=== PATIENT | male | born 1935 | race Caucasian/White ===

== ENCOUNTER 2017-04-26 11:45 | Inpatient (IN) | payer MEDICARE, OTHER ==
[2017-04-26 12:48] LABS: ALT (SGPT) 84 U/L (8-55); AST (SGOT) 161 U/L (5-34); Alkaline Phosphatase 162 U/L (40-150); Anion Gap 14 mmol/L (10-20); BUN (Urea Nitrogen) 53 mg/dL (8.4-25.7); Bilirubin, Total 5.4 mg/dL (0.2-1.2); Calc. Creatinine Clearance 0 mL/min (70-130); Calcium 8.5 mg/dL (7.8-10.44); Carbon Dioxide 25 mmol/L (23-31); Chloride 92 mmol/L (98-107); Estimated GFR-MDRD 50; Globulin 3.3 g/dL (2.4-3.5); Protein, Total 6.1 g/dL (5.8-8.1)
--- NOTE | 2017-04-26 12:58 | RAD ---
LEFT HIP RADIOGRAPH TWO VIEWS: 04/26/2017 PROVIDED CLINICAL HISTORY: Left hip pain status post fall. FINDINGS: There is cortical undulation involving the left inferior pubic ramus which may reflect nondisplaced fracture. There is subtle lucency involving the left acetabulum, suspicious for acetabular fracture . Left hip joint space appears preserved. IMPRESSION: Findings suspicious for left acetabular and inferior pubic rami fractures. POS: OFF
[2017-04-26 13:29] LABS: Hematocrit 42.3 % (42.0-52.0); Mean Platelet Volume 9.5 fL (7.4-10.4); Red Blood Cell (RBC) Count 4.01 mill/uL (4.70-6.10); White Blood Cell (WBC) Count 17.4 thou/uL (4.8-10.8)
--- OUTSIDE RECORDS SUMMARY | 2017-04-26 13:32 | XMS | Clinical Summary ---
:1935 Author Organization [facility] Address [address] [place] [address] Phone Care Team Providers Name Role Phone , Primary Care Provider Unavailable Allergies Active Allergy Reactions Severity Noted Date Comments Sulfamethoxazole-Trimethoprim Rash Low 03/18/2013 itching Iodinated Contrast- Oral And Iv Dye Rash Low 03/18/2013 itching Current Medications Prescription Sig. Disp. Refills Start Date End Date Status digoxin (LANOXIN) 0.125 Take 125 mcg by Active MG tablet mouth daily. nadolol (CORGARD) 20 MG Take 10 mg by mouth Active tablet daily. ISOSORBIDE DINITRATE ORAL Take 7.5 mg by Active mouth 2 (two) times daily. rifaximin (XIFAXAN) 550 Take 550 mg by Active mg Tab mouth 2 (two) times daily. lactulose (CEPHULAC) 20 Take 20 g by mouth Active gram packet 4 (four) times daily. PV W-O AMI/FERROUS Take by mouth Active FUMARATE/FA (M-VIT ORAL) daily. predniSONE (DELTASONE) 10 Take 20 mg by mouth Active MG tablet daily. glipiZIDE (GLUCOTROL) 10 Take 10 mg by mouth Active MG tablet 2 (two) times daily before meals. Active Problems Not on file Social History Tobacco Use Types Packs/Day Years Used Date Current Every Day Smoker Alcohol Use Drinks/Week oz/Week Comments No Sex Assigned at Date Recorded Not on file Last Filed Vital Signs Vital Sign Reading Time Taken Blood Pressure 149/70 03/18/2013 12:45 PM CDT Pulse 81 03/18/2013 12:45 PM CDT Temperature 36 C (96.8 F) 03/18/2013 6:00 AM CDT Respiratory Rate 16 03/18/2013 12:45 PM CDT Oxygen Saturation 97% 03/18/2013 11:29 AM CDT Inhaled Oxygen Concentration - - Weight 74.9 kg (165 lb 3.2 oz) 03/18/2013 6:00 AM CDT Height 182.9 cm (6') 03/18/2013 6:00 AM CDT Body Mass Index 22.41 03/18/2013 6:00 AM CDT Plan of Treatment Not on file Results Not on filefrom Last 3 Months
[2017-04-26 13:56] LABS: Band 8 % (5-11); Macrocytosis SLIGHT = 6-15 cells (100X) (0-5/hpf); Metamyelocyte 1 % (0-0); Neutrophil 88 % (42-75)
--- NOTE | 2017-04-26 16:21 | HP ---
PRIMARY CARE PHYSICIAN: Lidya Nicholson M.D. REASON FOR ADMISSION: Frequent fall, acetabular and pubic bone fracture. HISTORY OF PRESENT ILLNESS: An 81-year-old male who has multiple medical problems who was brought t o emergency room for frequent falls. The patient lives at home with his who is obstetrics and gynecology professor for [employer]. He had two times fall last night and he had one fall yesterday. The patient did not lose any c onsciousness, but he reports that he was not able to maintain any balance. He denies any nausea or vomiting. He denies any fever or chills. He denies any UTI symptoms. He denies any constipation o r diarrhea. He denies any abdominal pain. Patient had congestion in his chest and that is why he was taking antibiotics. Today, patient is found with hyponatremia, hypochloremia, and acute kidney injury. His blood sugar was out of control. He also found with leukocytosis with bandemia. Initially, this patient was planned for transferring to rehabilitation, but rehabilitation wanted to correct medical issue before they accepts him and that is why ER physician decided to keep this pat ient in the hospital. Trauma team was notified and they recommended medical team admission. In the emergency room, Ortho Team was also notified and they recommended that patient does not need any surgical intervention. At this point, we are admitting this patient in the hospital for further evaluation and treatment. 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 PAST SURGICAL HISTORY: CABG in 1996, pacemaker placement, multiple upper and lower endoscopy. PAST PSYCHIATRIC HISTORY: Reviewed and negative. SOCIAL HISTORY: Patient drinks alcohol socially, but he quit drinking alcohol completely several ye ars ago. He is a former smoker. He smoked cigars, but he quit smoking more than 10 years ago. He denies any other illicit drug abuse. He lives at home with family. FAMILY HISTORY: Mother from ovarian cancer by age of 70. Father from heart related disea se. Father also had diabetes. ALLERGIES: AMOXICILLIN, CODEINE, IODINE, PENICILLIN, and SULFA. REVIEW OF SYSTEMS: The following complete review of systems was negative, unless otherwise mentione d in the HPI or below: Constitutional: Weight loss or gain, ability to conduct usual activities. Skin: Rash, itching. Eyes: Double vision, pain. ENT/Mouth: Nose bleeding, neck stiffness, pain, tenderness. Cardiovascular: Palpitations, dyspnea on exertion, orthopnea. Respiratory: Shortness of breath, wheezing, cough, hemoptysis, fever or night sweats. Gastrointestinal: Poor appetite, abdominal pain, heartburn, nausea, vomiting, constipation, or diar asha. Genitourinary: Urgency, frequency, dysuria, nocturia. Musculoskeletal: Pain, swelling. Neurologic/Psychiatric: Anxiety, depression. Allergy/Immunologic: Skin rash, bleeding tendency. Please see my HPI for pertinent positive and negative. All other review of systems reviewed and neg ative except as mentioned in the HPI. CURRENT HOME MEDICATIONS: Corgard 80 mg p.o. daily, rifaximin 550 mg twice daily, lactulose 20 gram s p.o. twice daily, neomycin 500 mg twice daily, Levsin 0.125 mg sublingual every 4-6 hourly, Flomax 0.4 mg p.o. at bedtime, digoxin 125 mcg p.o. daily, glipizide 10 mg twice daily, Dexilant 60 mg p.o . daily, amlodipine 5 mg p.o. daily, Imdur 30 mg p.o. daily, trazodone 100 mg p.o. at bedtime p.r.n. , DuoNeb q.6 hourly p.r.n., Spiriva 18 mcg inhalation daily. EMERGENCY ROOM COURSE: Reviewed. PHYSICAL EXAMINATION: VITAL SIGNS: On arrival, blood pressure 98/71, pulse 80, respiratory rate 12, temperature 97.3, sat uration 97% on room air, weight 69.8 kilograms. GENERAL: Patient is currently alert, awake, lethargic, goes to sleep frequently during conversation . HEAD: Normocephalic, atraumatic. EYES: Pupils round, reactive to light. Extraocular muscles intact. ENT: Oropharynx within normal limits. Moist mucous membranes. No oral lesions. No pharyngeal louie thema, no exudates. NECK: Supple, no JVD, no thyromegaly, no carotid bruits. LUNGS: Coarse breath sounds, but no obvious rhonchi or rales noted. CARDIAC: S1 and S2 regular without any murmur. ABDOMEN: Soft, bowel sounds present. No peritoneal signs, no guarding, no rigidity, no rebound. BACK: Examination unremarkable, no CVA tenderness. No point tenderness. EXTREMITIES: Upper extremities, passive movement of all joints are normal. Lower extremities: No edema. Good peripheral pulsation. SKIN: No skin rash. HEMATOLOGICAL SYSTEM: No lymphadenopathy. PSYCHIATRIC: Normal affect. NEUROLOGIC: Nonfocal examination. No asterixis is noted. IMAGING AND SIGNIFICANT LABORATORY DATA: 1. CBC: WBC 17.4, hemoglobin 13.7, platelet 42, bands 8%. 2. BMP: Sodium 126, potassium 4.6, chloride 92, carbon dioxide 25, BUN 53, creatinine 1.53. Gluco se 339. 3. LFT: Bilirubin 5.4, AST 161, ALT 84, alkaline phosphatase 162, albumin 2.8. 4. EKG showing pacemaker rhythm. ASSESSMENT AND PLAN/IMPRESSION: 1. Frequent fall. Etiology uncertain, but I am pretty much sure that patient has orthostatic hypot ension, so we will check orthostatic vitals. I could not see any cerebellar sign, but we will try t o do CT brain to rule out any cerebellar pathology. This patient will need PT, OT, and eventually p lacement to rehabilitation. 2. Hyponatremia likely related with underlying cirrhosis of liver, suspect suspecting some volume d epletion. We will give him IV fluid with NS at 70 mL per hour and we will give only 1 liter of flui d. We will avoid too much fluid to prevent fluid overload status and we will repeat basic metabolic panel tomorrow. 3. Acute kidney failure. Compared to previous creatinine patient has creatinine elevated and that is why we will give him IV fluid and suspecting prerenal etiology and will repeat basic metabolic pa stephanie tomorrow. 4. Abnormal liver function tests related with underlying nonalcoholic cirrhosis of liver. We will repeat CMP tomorrow. 5. Hyperglycemia. We will continue patient's home medication for diabetes along with diabetic diet and insulin as per sliding scale per protocol. We will continue glipizide 10 mg twice daily. 6. Bandemia. We will check urinalysis and chest x-ray. Etiology uncertain, but patient was recent ly given course of steroid and antibiotic, we will also check Clostridium difficile. 7. Macrocytosis. We will continue folic acid, vitamin B12 therapy while in hospital. 8. Chronic diastolic heart failure. At this point, we will hold on diuretic therapy because of kid awais failure and volume depletion and the patient currently appears euvolemic. 9. Chronic obstructive pulmonary disease. We will continue DuoNeb q.6 hourly. We will check chest x-ray. 10. 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 We will continue Corgard 80 mg p.o. daily, rifaximin 550 mg p.o. twice daily, lactulose 20 grams p.o. twice daily, and neomycin 500 mg t wice daily. 11. Benign enlargement of prostate. We will continue Flomax 0.4 mg p.o. at bedtime. 12. Gastroesophageal reflux disease. We will continue Protonix 40 mg p.o. daily. 13. Paroxysmal atrial fibrillation. We will monitor on telemetry floor. We will continue digoxin 125 mcg p.o. daily. 14. Coronary artery disease with history of coronary artery bypass graft, currently we will hold on Imdur therapy because of relatively low blood pressure. 15. Hypertension. We will also hold on hypertension medication and will check orthostatic vitals t o rule out orthostatic hypotension. 16. Deep venous thrombosis prophylaxis. No Lovenox because of thrombocytopenia. 17. Gastrointestinal prophylaxis, Protonix 40 mg p.o. daily. CODE STATUS: The patient is FULL CODE. The patient's is surrogate decision maker. Disposition plan based on clinical course. We are expecting patient's stay in hospital more than 2 midnights. Plan of care discussed with the family member at bedside.
[2017-04-26] MEDS ORDERED: Ondansetron ODT 4 MG TAB SL PRN (16:25)
[2017-04-26] MEDS ORDERED: Acetaminophen 325 MG TAB PO PRN ×2 (16:25→16:36)
[2017-04-26] MEDS ORDERED: Sodium Chloride 0.9% 1,000 ML IV SCH ×2 (16:25→16:36)
[2017-04-26] MEDS ORDERED: Ondansetron HCl/PF 4 MG/2 ML Vial IVP PRN ×2 (16:25→16:36)
[2017-04-26] MEDS ORDERED: Artificial Tears 18 DROP/0.9 ML EA EYE PRN (16:36)
[2017-04-26] MEDS ORDERED: Dextrose 50% Abboject 50 ML SYRINGE SLOW IVP PRN (16:36)
[2017-04-26] MEDS ORDERED: Ondansetron ODT 4 MG TAB PO PRN (16:36)
[2017-04-26] MEDS ORDERED: Calcium Carbonate 500 MG ChewTAB PO PRN (16:36)
[2017-04-26] MEDS ORDERED: hydrALAZINE 20 MG/ML VIAL SLOW IVP PRN (16:36)
[2017-04-26] MEDS ORDERED: Sodium Chloride 0.65% Nasal 44 ML BOT EA NARE PRN (16:36)
[2017-04-26] MEDS ORDERED: Dextrose 5% in Water 1,000 ML IV PRN (16:36)
[2017-04-26] MEDS ORDERED: Eucerin (Mineral Oil/Petrolatum,White) 30 gm Jar TOP PRN (16:36)
[2017-04-26] MEDS ORDERED: Chloraseptic Spray 180 ml Bottle PO PRN (16:36)
[2017-04-26] MEDS ORDERED: Diabetic Tussin 200 MG/10 ML UDCUP PO PRN (16:36)
[2017-04-26] MEDS ORDERED: Mag-Al 1200 mg/1200 mg/30 ML UDCUP PO PRN (16:36)
[2017-04-26 16:48] VITALS: BMI 20.9
--- NOTE | 2017-04-26 18:27 | RAD ---
CHEST 1 VIEW: Date: 04/26/17 HISTORY: Bandemia. COMPARISON: Chest 1 view dated 04/22/17. FINDINGS: Marked elevation right hemidiaphragm, worsened from the comparison examination. There is compressive atelectasis in the lung bases. Cardiac silhouette and mediastinal contours are similar. IMPRESSION: Progressive volume loss in right lower lobe with atelectatic change. POS: [facility]
--- NOTE | 2017-04-26 19:29 | RAD ---
AP VIEW OF THE PELVIS 04/26/17 INDICATION: History of an acetabular fracture. COMPARISON: Left hip radiograph dated 04/26/17. FINDINGS: As seen on the comparison examination, is a transverse oriented fracture involving the left acetabul um. There is a nondisplaced healing fracture involving the left inferior pubic ramus. Right obturato r ring appears intact. SI joints appear within normal limits. IMPRESSION: Nondisplaced left acetabular and left inferior pubic ramus fracture. POS: [facility]
[2017-04-26] MEDS: glipiZIDE 10 MG TAB PO SCH (21:15)
[2017-04-26] MEDS: guaiFENesin ER 600 MG TAB PO SCH (21:15)
[2017-04-26] MEDS: Rifaximin 550 MG TAB PO SCH (21:15)
[2017-04-26] MEDS: Neomycin 500 mg Tablet PO SCH (21:16)
[2017-04-26] MEDS: HumaLOG 300 UNITS/3 ML VIAL SC PRN (21:20)
--- NOTE | 2017-04-27 00:15 | CON ---
DATE OF CONSULTATION: 04/26/2017 CONSULTING PHYSICIAN: Suresh Stoner MD PRIMARY CARE PHYSICIAN: Lidya Nicholson MD REASON FOR ADMISSION: Multiple falls. HISTORY OF PRESENT ILLNESS: Mr. Quesada is an 81-year-old male who has a history of medical problem s, he brought to the ER, he has had 5 falls he said in the last several weeks. Patient lives [facility] with , his caregiver. He had two falls, is complaining of left hip pain. The patient is curr ently resting in bed, in no acute complaints. PAST MEDICAL HISTORY: Chronic diastolic heart failure, cirrhosis of liver with portal hypertension, prostate issues, nonalcoholic cirrhosis of liver, coagulopathy due to liver disease, COPD, type 2 d iabetes, tricuspid regurgitation, dyslipidemia, gastroesophageal reflux disease, hypertension, pancy topenia, AFib, deconditioning. PAST SURGICAL HISTORY: CABG, pacemaker, multiple endoscopies. MEDICATIONS: Please see admission list for full details. ALLERGIES: Include AMOXICILLIN, CODEINE, IODINE, PENICILLIN, and SULFA. SOCIAL HISTORY: History of social drinking, former smoker. No history of illicit drug use. Lives at home with his family. PHYSICAL EXAMINATION: GENERAL: Alert to person, place, and time. The patient is resting comfortably in bed. EXTREMITIES: Focused exam of left lower extremity, the patient has pain with internal and external rotation of his hip. He is unable to flex his hip. He has got no effusion in his knee. He has got plantar flexion, dorsiflexion intact. Motor intact. L4-S1 to distribution of lower extremity. He has got brisk capillary refill. He got a pelvis that is stable on AP and lateral compression. His right lower extremity is neurovascularly intact, full range of motion, nontender to palpation. RADIOGRAPHS: Two views of left hip show a nondisplaced acetabular fracture to the acetabular dome. IMPRESSION: 1. Left acetabular fracture. 2. Multiple medical problems as listed above. PLAN: The patient will likely require a transition to a penitentiary versus rehabilitation facil ity given his multiple medical problems and his current issue. I allow the patient weightbear as to lerated with a walker. DVT prophylaxis will be performed and recommend DVT prophylaxis for 6 weeks. The patient's high risk for complication given his multiple falls as well as his multiple medical problems and has increased morbidity secondary to this. The patient will need to follow up in about 6 weeks with a pre-clinic film to ensure healing.
[2017-04-27 04:24] LABS: #Lymphocytes 1.5 thou/uL (1.20-3.40); #Monocytes 0.9 thou/uL (0.11-0.59); #Neutrophils 17.3 thou/uL (1.40-6.50); %Eosinophils 0.1 % (0.0-10.0); %Lymphocytes 7.6 % (21.0-51.0); %Monocytes 4.3 % (0.0-10.0); Hematocrit 43.7 % (42.0-52.0); Red Blood Cell (RBC) Count 4.13 mill/uL (4.70-6.10); White Blood Cell (WBC) Count 19.6 thou/uL (4.8-10.8)
[2017-04-27 04:51] LABS: ALT (SGPT) 87 U/L (8-55); AST (SGOT) 156 U/L (5-34); Alkaline Phosphatase 142 U/L (40-150); Anion Gap 16 mmol/L (10-20); BUN (Urea Nitrogen) 50 mg/dL (8.4-25.7); Bilirubin, Total 4.7 mg/dL (0.2-1.2); Calc. Creatinine Clearance 49 mL/min (70-130); Carbon Dioxide 21 mmol/L (23-31); Chloride 95 mmol/L (98-107); Estimated GFR-MDRD 60; Globulin 2.9 g/dL (2.4-3.5); Protein, Total 5.2 g/dL (5.8-8.1)
[2017-04-27 05:40] LABS: Bilirubin Small (Negative); Blood, Urine Trace (Negative); Glucose, Urine (Dipstick) 250 mg/dL (Negative); Ketone, Urine Negative (Negative); Nitrite Negative (Negative); Protein, Urine (Dipstick) Trace mg/dL (Neg-Trace); Urobilinogen 0.2 mg/dL (0.2-1.0)
[2017-04-27 05:43] LABS: Bacteria/HPF None Seen HPF (None Seen); Hyaline Casts/LPF 7-10 HYALINE CAST LPF (0-3 Hyaline); Squamous Epithelial 0-3 HPF (0-3)
[2017-04-27 06:04] LABS: RBC/HPF 0-3 HPF (0-3); Yeast-All Forms 1+ HPF (None Seen)
[2017-04-27] MEDS: Digoxin 0.125 MG TAB PO SCH (09:45)
[2017-04-27] MEDS: Folic Acid 1 MG TAB PO SCH (09:46)
[2017-04-27] MEDS: glipiZIDE 10 MG TAB PO SCH (09:46)
[2017-04-27] MEDS: guaiFENesin ER 600 MG TAB PO SCH ×2 (09:46→21:10)
[2017-04-27] MEDS: Neomycin 500 mg Tablet PO SCH ×2 (09:47→21:10)
[2017-04-27] MEDS: Tamsulosin HCl 0.4 MG CAP PO SCH (09:47)
[2017-04-27] MEDS: Cyanocobalamin (Vitamin B-12) 1,000 MCG TAB PO SCH (09:48)
[2017-04-27] MEDS: Rifaximin 550 MG TAB PO SCH ×2 (09:49→21:10)
[2017-04-27] MEDS: HumaLOG 300 UNITS/3 ML VIAL SC PRN (09:58)
--- NOTE | 2017-04-27 12:32 | PDOC.PN ---
- Subjective Encounter Start Date: 04/27/17 Encounter Start Time: 10:00 Subjective: lethargic, responds to verbal questions -: has multiple bruises/abrasions all over from recurrent falls - Objective Resuscitation Status: Resuscitation Status FULL:Full Resuscitation MAR Reviewed: Yes Vital Signs & Weight: Vital Signs (12 hours) Temp Pulse Resp BP Pulse Ox 04/27/17 11:35 98.4 F 78 20 130/59 L 94 L 04/27/17 09:45 76 04/27/17 08:09 92 L 04/27/17 08:06 76 20 92 L 04/27/17 07:35 97.9 F 87 18 143/64 H 93 L 04/27/17 07:20 97.9 F 87 18 92 L 04/27/17 04:00 97.6 F 78 20 133/95 H 94 L Weight Weight 154 lb I&O: 04/26/17 04/27/17 04/28/17 06:59 06:59 06:59 Intake Total 1558 Output Total 400 Balance 1158 Result Diagrams: 04/27/17 04:10 04/27/17 04:10 Additional Labs: Accuchecks 04/27/17 04/26/17 04/26/17 05:51 21:01 17:03 POC Glucose 244 H 285 H 268 H Phys Exam - Physical Examination HEENT: PERRLA dry mucosa Neck: no JVD, supple Respiratory: no wheezing, no rales Cardiovascular: RRR, no significant murmur Gastrointestinal: soft, non-tender, no distention, positive bowel sounds Musculoskeletal: no edema, pulses present Neurological: non-focal, moves all 4 limbs Dx/Plan (1) KAPIL (acute kidney injury) Code(s): N17.9 - ACUTE KIDNEY FAILURE, UNSPECIFIED Status: Acute (2) Hyponatremia Code(s): E87.1 - HYPO-OSMOLALITY AND HYPONATREMIA Status: Acute Comment: likely due to dehydration (3) Left acetabular fracture Code(s): S32.402A - UNSP FRACTURE OF LEFT ACETABULUM, INIT FOR CLOS FX Status : Acute Qualifiers: Encounter type: subsequent encounter Sublocation of acetabulum: unspecified portion of acetabulum Fracture type: closed (4) Fracture of left inferior pubic ramus Code(s): S32.592A - OTH FRACTURE OF LEFT PUBIS, INIT ENCNTR FOR CLOSED FRACTURE Status: Acute Qualifiers: Encounter type: subsequent encounter Fracture type: closed (5) CAD (coronary artery disease) Code(s): I25.10 - ATHSCL HEART DISEASE OF [place] CORONARY ARTERY W/O ANG PCTRS Status: Chronic Qualifiers: Coronary Disease-Associated Artery/Lesion type: bypass graft [place] vs. transplanted heart: [place] heart Associated angina: without angina Qualified Code(s): I25.810 - Atherosclerosis of coronary artery bypass graft(s) without angina pectoris (6) DM type 2 (diabetes mellitus, type 2) Status: Chronic Qualifiers: Diabetes mellitus complication status: with unspecified complications Diabetes mellitus intermediate frame tender insulin use: without intermediate frame tender use Qualified Code( s): E11.8 - Type 2 diabetes mellitus with unspecified complications (7) Thrombocytopenia Code(s): D69.6 - THROMBOCYTOPENIA, UNSPECIFIED Status: Chronic Comment: due to cirrhosis (8) BPH (benign prostatic hyperplasia) Code(s): N40.0 - BENIGN PROSTATIC HYPERPLASIA WITHOUT LOWER URINRY TRACT SYMP Status: Chronic Qualifiers: Lower urinary tract symptom presence: unspecified whether lower urinary tract symptoms present Qualified Code(s): N40.0 - Benign prostatic hyperplasia without lower urinary tract symptoms (9) COPD (chronic obstructive pulmonary disease) Status: Chronic Qualifiers: COPD type: unspecified COPD Qualified Code(s): J44.9 - Chronic obstructive pulmonary disease, unspecified (10) Cirrhosis of liver not due to alcohol Status: Chronic (11) Dyslipidemia Code(s): E78.5 - HYPERLIPIDEMIA, UNSPECIFIED Status: Chronic (12) GERD (gastroesophageal reflux disease) Code(s): K21.9 - GASTRO-ESOPHAGEAL REFLUX DISEASE WITHOUT ESOPHAGITIS Status: Chronic Qualifiers: Esophagitis presence: esophagitis presence not specified Qualified Code(s) : K21.9 - Gastro-esophageal reflux disease without esophagitis (13) Hypertension Code(s): I10 - ESSENTIAL (PRIMARY) HYPERTENSION Status: Chronic Qualifiers: Hypertension type: essential hypertension Qualified Code(s): I10 - Essential (primary) hypertension (14) Paroxysmal atrial fibrillation Code(s): I48.0 - PAROXYSMAL ATRIAL FIBRILLATION Status: Chronic (15) Hepatic encephalopathy Code(s): K72.90 - HEPATIC FAILURE, UNSPECIFIED WITHOUT COMA Status: Suspected - Plan will get ammonia, bnp, baseline inr, hold lactulose for now (diarrhea) -: consult GI, await cultures, not on antibiotics except neomycin for liver -: likely has dehydration clinically with margination, kapil and hyponatremia -: poor prognosis, will need rehab/swing bed -: still lethargic and not fully oriented * . Review of Systems - Medications/Allergies Allergies/Adverse Reactions: Allergies Allergy/AdvReac Type Severity Reaction Status Date / Time amoxicillin [Amoxicillin] Allergy Verified 11/21/16 22:58 codeine Allergy Verified 11/21/16 22:58 iodine Allergy Verified 11/21/16 22:58 Penicillins Allergy Verified 11/21/16 23:00 Sulfa (Sulfonamide Allergy Verified 11/21/16 22:58 Antibiotics) sulfamethoxazole Allergy Verified 11/21/16 22:58 [From Bactrim] trimethoprim [From Bactrim] Allergy Verified 11/21/16 22:58 Medications: Current Medications Acetaminophen (Tylenol) 650 mg PO Q4H PRN PRN Reason: Headache/Fever or Pain Al Hydroxide/Mg Hydroxide (Maalox) 30 ml PO Q6H PRN PRN Reason: Heartburn or Indigestion Albuterol/Ipratropium (Duoneb) 3 ml NEB [id number] [facility] Last Admin: 04/27/17 08:06 Dose: 3 ml Artificial Tears (Tears Naturale) 0 drop EA EYE PRN PRN PRN Reason: Dry Eyes Calcium Carbonate (Tums) 1,000 mg PO Q4H PRN PRN Reason: Heartburn or Indigestion Cyanocobalamin (Vitamin B-12) 1,000 mcg PO DAILY [facility] Last Admin: 04/27/17 09:48 Dose: 1,000 mcg Dextrose/Water (Dextrose 50%) 25 gm SLOW IVP PRN PRN PRN Reason: Hypoglycemia Digoxin (Lanoxin) 0.125 mg PO DAILY [facility] Last Admin: 04/27/17 09:45 Dose: 0.125 mg Folic Acid (Folvite) 1 mg PO DAILY [facility] Last Admin: 04/27/17 09:46 Dose: 1 mg Glucagon (Glucagon) 1 mg IM PRN PRN PRN Reason: Hypoglycemia Guaifenesin (Robitussin Sf) 200 mg PO Q4H PRN PRN Reason: Cough Guaifenesin (Mucinex) 600 mg PO Q12HR [facility] Last Admin: 04/27/17 09:46 Dose: 600 mg Hydralazine HCl (Apresoline) 10 mg SLOW IVP Q4H PRN PRN Reason: Systolic BP > 180 Dextrose/Water (D5w) 1,000 mls @ 0 mls/hr IV .Q0M PRN; As Directed PRN Reason: Hypoglycemia Sodium Chloride (Normal Saline 0.9%) 1,000 mls @ 50 mls/hr IV .Q20H [facility] Stop: 04/27/17 12:35 Last Admin: 04/26/17 16:59 Dose: 1,000 mls Insulin Human Lispro (Humalog) 0 units SC .AGGRESSIVE SLIDING PRN PRN Reason: Aggressive Correctional Scale Last Admin: 04/27/17 09:58 Dose: 6 unit Insulin Human Lispro (Humalog) 0 units SC .BEDTIME SLIDING SC PRN PRN Reason: Bedtime Correctional Scale Last Admin: 04/26/17 21:20 Dose: 3 unit Mineral Oil/White Petrolatum (Eucerin Cream) 0 gm TOP BIDPRN PRN PRN Reason: Dry Skin Neomycin Sulfate (Neomycin Sulfate) 500 mg PO Q12HR [facility] Last Admin: 04/27/17 09:47 Dose: 500 mg Ondansetron HCl (Zofran Odt) 4 mg PO Q6H PRN PRN Reason: Nausea/Vomiting Ondansetron HCl (Zofran) 4 mg IVP Q6H PRN PRN Reason: Nausea/Vomiting Pantoprazole Sodium (Protonix) 40 mg PO DAILY [facility] Last Admin: 04/27/17 09:47 Dose: 40 mg Phenol (Chloraseptic [place] 180 Ml Bot) 0 ml PO PRN PRN PRN Reason: Sore Throat Rifaximin (Xifaxan) 550 mg PO BID [facility] Last Admin: 04/27/17 09:49 Dose: 550 mg Sodium Chloride ([place] Nasal [place] 0.65%) 0 ml EA NARE QIDPRN PRN PRN Reason: Nasal Congestion Tamsulosin HCl (Flomax) 0.4 mg PO DAILY [facility] Last Admin: 04/27/17 09:47 Dose: 0.4 mg
[2017-04-27 13:05] LABS: PTT 31.8 SEC (22.9-36.1); Prothrombin Time 18.7 SEC (12.0-14.7)
--- NOTE | 2017-04-27 15:42 | CT ---
CT HEAD NONCONTRAST: Date: 04/27/17 HISTORY: Altered mental status. COMPARISON: 11/21/16. FINDINGS: There is no evidence of acute intracranial hemorrhage or infarct. Diffuse cortical atrophy and chron ic ischemic small vessel disease are again demonstrated. There is no mass effect or shift of midline structures. Mucosal thickening is apparent within the ethmoid air cells. IMPRESSION: No acute intracranial abnormalities are demonstrated on noncontrast CT head. POS: [facility]
--- NOTE | 2017-04-27 15:50 | CON ---
DATE OF CONSULTATION: 04/27/2017 REQUESTING PHYSICIAN: Dr. Beverly. REASON FOR CONSULTATION: Altered mental status and cirrhosis. HISTORY OF PRESENT ILLNESS: Amos Quesada is an 81-year-old man, seen in the outpatient setting by cris [facility] colleague, Dr. Vikas Pollard. 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 He has had prior complications of hepatic encephalopathy and esophageal varices. His last EGD was 2-3 years ago in [place], and he is on nadolol for this. His hepatic encephalopathy has evidently been fairly well controlled recently on rifaximin and lactulose. Mr. Quesada most recently followed up in our clinic in 01/2017. In recent months, he has been falling frequently. Unfortunately, he recently fell and suffered a ri ght acetabular as well as clavicular fracture. He was admitted to the hospital, and he also has mul tiple electrolyte abnormalities. He has also been noted to have some symptoms of delirium. The que stion has arisen as to whether his hepatic encephalopathy is well controlled or not. Currently, toleeanne curran, the patient, for me, seems to be lucid. He answers questions appropriately, though he cannot re ally get into details of his history. He has no asterixis. He has been tolerating his diet. REVIEW OF SYSTEMS: Full review of systems including constitutional, head, eyes, ears, nose, throat, GI, , cardiovascular, respiratory, musculoskeletal, and neurologic systems is negative except as noted in the HPI. PAST MEDICAL HISTORY: Chronic diastolic heart failure; cirrhosis with portal hypertension, secondar y to prior alcohol; BPH; coagulopathy, due to cirrhosis; COPD; diabetes, type 2; tricuspid regurgita tion; hyperlipidemia; GERD; hypertension; pancytopenia; paroxysmal atrial fibrillation; physical dec onditioning; esophageal varices; hepatic encephalopathy. PAST SURGICAL HISTORY: CABG in 1996 and pacemaker placement. SOCIAL HISTORY: Quit drinking alcohol completely several years ago. He is a former smoker. No wai g abuse. FAMILY HISTORY: Mother had ovarian cancer. Father of heart disease. ALLERGIES: AMOXICILLIN, CODEINE, IODINE, PENICILLIN, and SULFA. MEDICATIONS: Corgard 80 mg daily, rifaximin 550 mg twice daily, lactulose 20 grams p.o. twice daily , neomycin 500 mg twice daily, Levsin p.r.n., Flomax, digoxin, glipizide, Dexilant 60 mg daily, amlo dipine 5 mg daily, Imdur, trazodone, DuoNeb, Spiriva. PHYSICAL EXAMINATION: VITAL SIGNS: Temperature 98.4, pulse 86, blood pressure 130/70, 96% oxygen saturation on room air. GENERAL: An 81-year-old chronically ill-appearing gentleman, lying in bed comfortably, in no distre ss. SKIN: He is mildly jaundiced, no rashes were palpable. EYES: Mild scleral icterus. Extraocular movements intact. ENT: Mucous membranes moist, no oral lesions. LYMPH: No submandibular or supraclavicular lymphadenopathy. THYROID: Nontender to palpation. MENTAL: The patient is somnolent, but easily arousable. He is able to answer questions appropriate ly, though not in great detail. HEART: Regular rate and rhythm. LUNGS: Clear to auscultation bilaterally. ABDOMEN: Nondistended. Bowel sounds present. Soft and nontender to palpation. EXTREMITIES: No peripheral edema. NEUROLOGICAL: Cranial nerves II-XII intact bilaterally. No asterixis. LABORATORY STUDIES: WBC 19.6, hemoglobin 13.9, platelets 45. INR 1.5. Sodium 127, potassium 4.5, BUN 50, creatinine 1.16, total bilirubin 4.7, alkaline phosphatase 142, AST 156, ALT 87, albumin 2.3 . IMAGING STUDIES: CT of the head without contrast showed no acute processes. Pelvis x-ray shows non displaced left acetabular and left inferior pubic ramus fractures. Chest x-ray shows progressive vo lume loss in the right lower lobe with atelectasis. ASSESSMENT AND PLAN: 1. Delirium. 2. Cirrhosis secondary to prior alcohol abuse. 3. History of hepatic encephalopathy. 4. Acetabular fracture. Regarding the patient's fluctuating mental status, this does not appear to represent hepatic encepha lopathy. Note, his ammonia level is normal. He continues on rifaximin 550 mg b.i.d. Even while ho lding the lactulose, the rifaximin should be enough to present encephalopathy episodes. There is no asterixis on exam. I think his fluctuating mental status is more of a general delirium, and he cer tainly has plenty of reasons for that. Overall, his liver disease is mildly decompensated, but he d oes not have gross ascites. He is on prophylaxis for spontaneous bacterial peritonitis as well as p rophylaxis for variceal bleeding and I would continue all of those home medications if appropriate f rom a renal standpoint. No gastrointestinal diagnostics or intervention planned at this time. Thank you for the consultation. Please call with questions or concerns.
[2017-04-28 05:19] LABS: Hematocrit 40.6 % (42.0-52.0); Mean Platelet Volume 10.3 fL (7.4-10.4); Red Blood Cell (RBC) Count 3.84 mill/uL (4.70-6.10); White Blood Cell (WBC) Count 14.5 thou/uL (4.8-10.8)
[2017-04-28 05:32] LABS: ALT (SGPT) 80 U/L (8-55); AST (SGOT) 127 U/L (5-34); Alkaline Phosphatase 135 U/L (40-150); Anion Gap 12 mmol/L (10-20); BUN (Urea Nitrogen) 51 mg/dL (8.4-25.7); CK (CPK) 1111 U/L (30-200); Calc. Creatinine Clearance 52 mL/min (70-130); Calcium 7.9 mg/dL (7.8-10.44); Carbon Dioxide 26 mmol/L (23-31); Chloride 95 mmol/L (98-107); Estimated GFR-MDRD 59; Globulin 2.7 g/dL (2.4-3.5)
[2017-04-28] MEDS: Rifaximin 550 MG TAB PO SCH ×2 (10:15→21:24)
[2017-04-28] MEDS: Tamsulosin HCl 0.4 MG CAP PO SCH (10:19)
[2017-04-28] MEDS: guaiFENesin ER 600 MG TAB PO SCH ×2 (10:19→21:24)
[2017-04-28] MEDS: Cyanocobalamin (Vitamin B-12) 1,000 MCG TAB PO SCH (10:19)
[2017-04-28] MEDS: Neomycin 500 mg Tablet PO SCH ×2 (10:19→21:24)
[2017-04-28] MEDS: Digoxin 0.125 MG TAB PO SCH (10:19)
[2017-04-28] MEDS: Folic Acid 1 MG TAB PO SCH (10:20)
[2017-04-28] MEDS: Albumin 25% 25 GM/100 ML BOT IVPB SCH ×3 (11:06→21:30)
--- NOTE | 2017-04-28 11:37 | PDOC.PN ---
- Subjective Encounter Start Date: 04/28/17 Encounter Start Time: 08:45 -: old records requested/rev pt is confused, no fever, Patient seen and examined. No overnight events - Objective Resuscitation Status: Resuscitation Status FULL:Full Resuscitation MAR Reviewed: Yes Vital Signs & Weight: Vital Signs (12 hours) Temp Pulse Resp BP Pulse Ox 04/28/17 10:19 82 04/28/17 07:42 94 L 04/28/17 07:35 82 20 94 L 04/28/17 07:15 97.5 F L 81 16 130/70 95 04/28/17 04:00 97.7 F 86 20 122/81 96 Weight Weight 163 lb 12.8 oz I&O: 04/27/17 04/28/17 04/29/17 06:59 06:59 05:59 Intake Total 1558 1320 Output Total 400 Balance 1158 1320 Result Diagrams: 04/28/17 05:09 04/28/17 05:09 Additional Labs: Accuchecks 04/28/17 04/28/17 04/27/17 11:24 06:14 20:59 POC Glucose 241 H 183 H 183 H 04/27/17 16:41 POC Glucose 134 H EKG Reviewed by me: Yes Phys Exam - Physical Examination Constitutional: NAD HEENT: PERRLA, moist MMs Neck: no JVD, supple, full ROM Respiratory: no wheezing, no rales, no rhonchi Cardiovascular: RRR, no significant murmur, no rub Gastrointestinal: soft, non-tender, no distention, positive bowel sounds Musculoskeletal: no edema, pulses present Neurological: moves all 4 limbs Lymphatic: no nodes Skin: no rash, normal turgor Dx/Plan (1) KAPIL (acute kidney injury) Code(s): N17.9 - ACUTE KIDNEY FAILURE, UNSPECIFIED Status: Acute (2) CHF exacerbation Code(s): I50.9 - HEART FAILURE, UNSPECIFIED Status: Acute Qualifiers: Congestive heart failure type: diastolic Qualified Code(s): I50.33 - Acute on chronic diastolic (congestive) heart failure Comment: now euvolemic (3) Fracture of left inferior pubic ramus Code(s): S32.592A - OTH FRACTURE OF LEFT PUBIS, INIT ENCNTR FOR CLOSED FRACTURE Status: Acute Qualifiers: Encounter type: subsequent encounter Fracture type: closed (4) Hyponatremia Code(s): E87.1 - HYPO-OSMOLALITY AND HYPONATREMIA Status: Acute Comment: likely due to dehydration (5) Left acetabular fracture Code(s): S32.402A - UNSP FRACTURE OF LEFT ACETABULUM, INIT FOR CLOS FX Status : Acute Qualifiers: Encounter type: subsequent encounter Sublocation of acetabulum: unspecified portion of acetabulum Fracture type: closed (6) Abnormal LFTs Code(s): R79.89 - OTHER SPECIFIED ABNORMAL FINDINGS OF BLOOD CHEMISTRY Status : Chronic (7) BPH (benign prostatic hyperplasia) Code(s): N40.0 - BENIGN PROSTATIC HYPERPLASIA WITHOUT LOWER URINRY TRACT SYMP Status: Chronic Qualifiers: Lower urinary tract symptom presence: unspecified whether lower urinary tract symptoms present Qualified Code(s): N40.0 - Benign prostatic hyperplasia without lower urinary tract symptoms (8) CAD (coronary artery disease) Code(s): I25.10 - ATHSCL HEART DISEASE OF [place] CORONARY ARTERY W/O ANG PCTRS Status: Chronic Qualifiers: Coronary Disease-Associated Artery/Lesion type: bypass graft [place] vs. transplanted heart: [place] heart Associated angina: without angina Qualified Code(s): I25.810 - Atherosclerosis of coronary artery bypass graft(s) without angina pectoris (9) COPD (chronic obstructive pulmonary disease) Status: Chronic Qualifiers: COPD type: unspecified COPD Qualified Code(s): J44.9 - Chronic obstructive pulmonary disease, unspecified (10) Cirrhosis of liver not due to alcohol Status: Chronic (11) Coagulopathy Status: Chronic (12) Diabetes type 2, controlled Code(s): E11.9 - TYPE 2 DIABETES MELLITUS WITHOUT COMPLICATIONS Status: Chronic (13) GERD (gastroesophageal reflux disease) Code(s): K21.9 - GASTRO-ESOPHAGEAL REFLUX DISEASE WITHOUT ESOPHAGITIS Status: Chronic Qualifiers: Esophagitis presence: esophagitis presence not specified Qualified Code(s) : K21.9 - Gastro-esophageal reflux disease without esophagitis (14) Hypertension Code(s): I10 - ESSENTIAL (PRIMARY) HYPERTENSION Status: Chronic Qualifiers: Hypertension type: essential hypertension Qualified Code(s): I10 - Essential (primary) hypertension (15) Pancytopenia Code(s): D61.818 - OTHER PANCYTOPENIA Status: Chronic (16) Paroxysmal atrial fibrillation Code(s): I48.0 - PAROXYSMAL ATRIAL FIBRILLATION Status: Chronic (17) Thrombocytopenia Code(s): D69.6 - THROMBOCYTOPENIA, UNSPECIFIED Status: Chronic Comment: due to cirrhosis (18) Hepatic encephalopathy Code(s): K72.90 - HEPATIC FAILURE, UNSPECIFIED WITHOUT COMA Status: Suspected (19) Acute metabolic encephalopathy Code(s): G93.41 - METABOLIC ENCEPHALOPATHY Status: Acute (20) Dyslipidemia Code(s): E78.5 - HYPERLIPIDEMIA, UNSPECIFIED Status: Chronic - Plan cont current plan of care * continue albumin * monitor labs * updated plan to caregiver * follow culture * discussed with nephrology about plan * medication reviewed as below * symptomatic treatment. Review of Systems - Review of Systems Other: not reliable due to confusion - Medications/Allergies Allergies/Adverse Reactions: Allergies Allergy/AdvReac Type Severity Reaction Status Date / Time amoxicillin [Amoxicillin] Allergy Verified 11/21/16 22:58 codeine Allergy Verified 11/21/16 22:58 iodine Allergy Verified 11/21/16 22:58 Penicillins Allergy Verified 11/21/16 23:00 Sulfa (Sulfonamide Allergy Verified 11/21/16 22:58 Antibiotics) sulfamethoxazole Allergy Verified 11/21/16 22:58 [From Bactrim] trimethoprim [From Bactrim] Allergy Verified 11/21/16 22:58 Medications: Current Medications Acetaminophen (Tylenol) 650 mg PO Q4H PRN PRN Reason: Headache/Fever or Pain Al Hydroxide/Mg Hydroxide (Maalox) 30 ml PO Q6H PRN PRN Reason: Heartburn or Indigestion Albumin Human (Albumin 25%) 25 gm IVPB Q6H [facility] Stop: 04/29/17 03:31 Last Admin: 04/28/17 11:06 Dose: 25 gm Albuterol/Ipratropium (Duoneb) 3 ml NEB [id number] [facility] Last Admin: 04/28/17 07:35 Dose: 3 ml Artificial Tears (Tears Naturale) 0 drop EA EYE PRN PRN PRN Reason: Dry Eyes Calcium Carbonate (Tums) 1,000 mg PO Q4H PRN PRN Reason: Heartburn or Indigestion Cyanocobalamin (Vitamin B-12) 1,000 mcg PO DAILY [facility] Last Admin: 04/28/17 10:19 Dose: 1,000 mcg Dextrose/Water (Dextrose 50%) 25 gm SLOW IVP PRN PRN PRN Reason: Hypoglycemia Digoxin (Lanoxin) 0.125 mg PO DAILY [facility] Last Admin: 04/28/17 10:19 Dose: 0.125 mg Folic Acid (Folvite) 1 mg PO DAILY [facility] Last Admin: 04/28/17 10:20 Dose: 1 mg Glucagon (Glucagon) 1 mg IM PRN PRN PRN Reason: Hypoglycemia Guaifenesin (Robitussin Sf) 200 mg PO Q4H PRN PRN Reason: Cough Guaifenesin (Mucinex) 600 mg PO Q12HR [facility] Last Admin: 04/28/17 10:19 Dose: 600 mg Hydralazine HCl (Apresoline) 10 mg SLOW IVP Q4H PRN PRN Reason: Systolic BP > 180 Dextrose/Water (D5w) 1,000 mls @ 0 mls/hr IV .Q0M PRN; As Directed PRN Reason: Hypoglycemia Insulin Human Lispro (Humalog) 0 units SC .AGGRESSIVE SLIDING PRN PRN Reason: Aggressive Correctional Scale Last Admin: 04/27/17 09:58 Dose: 6 unit Insulin Human Lispro (Humalog) 0 units SC .BEDTIME SLIDING SC PRN PRN Reason: Bedtime Correctional Scale Last Admin: 04/26/17 21:20 Dose: 3 unit Mineral Oil/White Petrolatum (Eucerin Cream) 0 gm TOP BIDPRN PRN PRN Reason: Dry Skin Neomycin Sulfate (Neomycin Sulfate) 500 mg PO Q12HR [facility] Last Admin: 04/28/17 10:19 Dose: 500 mg Ondansetron HCl (Zofran Odt) 4 mg PO Q6H PRN PRN Reason: Nausea/Vomiting Ondansetron HCl (Zofran) 4 mg IVP Q6H PRN PRN Reason: Nausea/Vomiting Pantoprazole Sodium (Protonix) 40 mg PO DAILY [facility] Last Admin: 04/28/17 10:20 Dose: 40 mg Phenol (Chloraseptic [place] 180 Ml Bot) 0 ml PO PRN PRN PRN Reason: Sore Throat Rifaximin (Xifaxan) 550 mg PO BID [facility] Last Admin: 04/28/17 10:15 Dose: 550 mg Sodium Chloride ([place] Nasal [place] 0.65%) 0 ml EA NARE QIDPRN PRN PRN Reason: Nasal Congestion Sodium Chloride (Flush - Normal Saline) 10 ml IVF Q12HR JETHRO Sodium Chloride (Flush - Normal Saline) 10 ml IVF PRN PRN PRN Reason: Saline Flush Tamsulosin HCl (Flomax) 0.4 mg PO DAILY [facility] Last Admin: 04/28/17 10:19 Dose: 0.4 mg
--- NOTE | 2017-04-28 13:47 | EKG ---
Test Reason : FALL Blood Pressure : / mmHG Vent. Rate : 077 BPM Atrial Rate : 098 BPM P-R Int : 000 ms QRS Dur : 090 ms QT Int : 378 ms P-R-T Axes : 000 -03 261 degrees QTc Int : 427 ms Demand pacemaker; interpretation is based on intrinsic rhythm Abnormal ECG Confirmed by EDIL HAINES, DWAYNE ([id number]), book editor MARK ALEMAN ([id number]) on 04/28/2017 1:47:09 PM Referred By: Confirmed By:DWAYNE SOLO MD
[2017-04-28] MEDS: HumaLOG 300 UNITS/3 ML VIAL SC PRN ×2 (14:35→18:28)
--- NOTE | 2017-04-28 14:36 | RAD ---
CHEST ONE VIEW: HISTORY: Cough. COMPARISON: 04/26/2017 FINDINGS: The cardiac silhouette is magnified by projection. The right hemidiaphragm remains elevated. Bibas ilar atelectasis is similar in appearance to the prior exam. The mediastinum is midline with aortic calcification, postoperative changes, and a dual lead left subclavian cardiac electronic device. N o lobar consolidation or pneumothorax is apparent. IMPRESSION: Stable radiographic appearance of the chest. POS: [place]
--- NOTE | 2017-04-28 23:48 | CON ---
NEPHROLOGY CONSULTATION NOTE DATE OF CONSULTATION: 04/28/2017 CONSULTING PHYSICIAN: Dr. Stoner. REASON FOR CONSULTATION: Hyponatremia and acute kidney injury. REASON FOR ADMISSION: Frequent falls. HISTORY OF PRESENT ILLNESS: This is an 81-year-old male with history of multiple medical problems i ncluding CHF, cirrhosis, hypertension, BPH, COPD, type 2 diabetes and hyperlipidemia who came to the hospital with frequent falls and was found to have hyponatremia. Nephrology is consulted. The pat ient's sodium was 126 on arrival and baseline runs around 134-135 and this morning it was 129. Radha ent had IV fluids initially during admission. He also had elevated creatinine, it was 1.3 from his baseline, it was 0.9, which improved to 1.1. Patient is mildly edematous. No fever, chills, no leora rtness of breath, no chest pain or palpitation reported. No nausea or vomiting. PAST MEDICAL HISTORY: Positive for CHF, cirrhosis, BPH, hypertension, coagulopathy, COPD, type 2 di abetes, tricuspid regurgitation and hyperlipidemia. PAST SURGICAL HISTORY: CABG, pacemaker and endoscopy. HOME MEDICATIONS: Corgard, rifaximin, lactulose, neomycin, Levsin sublingual, Flomax, digoxin, glip izide, Dexilant, amlodipine, Imdur, trazodone, DuoNebs and Spiriva. ALLERGIES: AMOXICILLIN, CODEINE, IODINE, PENICILLIN AND SULFA. SOCIAL HISTORY: No smoking alcohol or illicit drug abuse. FAMILY HISTORY: Positive for ovarian cancer REVIEW OF SYSTEMS: The following complete review of systems was negative, unless otherwise mentione d in the HPI or below: Constitutional: Weight loss or gain, ability to conduct usual activities. Skin: Rash, itching. Eyes: Double vision, pain. ENT/Mouth: Nose bleeding, neck stiffness, pain, tenderness. Cardiovascular: Palpitations, dyspnea on exertion, orthopnea. Respiratory: Shortness of breath, wheezing, cough, hemoptysis, fever or night sweats. Gastrointestinal: Poor appetite, abdominal pain, heartburn, nausea, vomiting, constipation, or diar asha. Genitourinary: Urgency, frequency, dysuria, nocturia. Musculoskeletal: Pain, swelling. Neurologic/Psychiatric: Anxiety, depression. Allergy/Immunologic: Skin rash, bleeding tendency. PHYSICAL EXAMINATION: GENERAL: This is a well-built male in no apparent distress. VITAL SIGNS: Temperature 97.5, pulse 96, respiratory 18 and blood pressure 131/61. HEENT: Atraumatic and normocephalic. Oral mucosa is moist. NECK: Supple. No masses. CARDIOVASCULAR: S1 and S2 present. Rate and rhythm regular. RESPIRATORY: Clear. GASTROINTESTINAL: Abdomen is soft. MUSCULOSKELETAL: 1+ edema. DERMATOLOGIC: No skin rash. NEUROLOGIC: Alert and awake. PSYCHIATRIC: Mood and affect normal. LABORATORY DATA: Hemoglobin is 13.6. INR is 1.5, potassium is 4.1, sodium is 129, BUN 51 and creat inine 1.1. ASSESSMENT AND PLAN: 1. Hyponatremia, most likely volume depletion, improved with IV fluids, still 129. Plan is to star t albumin for volume expansion, albumin level was was 2.3. 2. Acute kidney injury, better with IV hydration. 3. Hypochloremia. 4. Hypoalbuminemia with severe protein-energy malnutrition. 5. Cirrhosis of the liver. 6. Anemia, stable. 7. Edema, controlled. 8. Hypertension, stable. Plan is to try albumin, limit fluid intake, limit free water intake and we will follow. Thank you for the consultation.
[2017-04-29] MEDS: Albumin 25% 25 GM/100 ML BOT IVPB SCH (03:03)
[2017-04-29] MEDS: Cyanocobalamin (Vitamin B-12) 1,000 MCG TAB PO SCH (09:44)
[2017-04-29] MEDS: Neomycin 500 mg Tablet PO SCH ×2 (09:44→20:57)
[2017-04-29] MEDS: Digoxin 0.125 MG TAB PO SCH (09:44)
[2017-04-29] MEDS: Folic Acid 1 MG TAB PO SCH (09:44)
[2017-04-29] MEDS: guaiFENesin ER 600 MG TAB PO SCH ×2 (09:44→20:57)
[2017-04-29] MEDS: Tamsulosin HCl 0.4 MG CAP PO SCH (09:44)
--- NOTE | 2017-04-29 09:46 | PDOC.PN ---
- Subjective Encounter Start Date: 04/29/17 Encounter Start Time: 08:20 pt is still confused, weak, incoherent Patient seen and examined. No overnight events - Objective Resuscitation Status: Resuscitation Status FULL:Full Resuscitation MAR Reviewed: Yes Vital Signs & Weight: Vital Signs (12 hours) Temp Pulse Resp BP Pulse Ox 04/29/17 07:15 97.2 F L 84 18 138/69 92 L 04/29/17 07:04 93 L 04/29/17 07:00 78 20 93 L 04/29/17 04:00 98.8 F 84 20 139/68 95 04/29/17 00:02 96 Weight Weight 166 lb 8 oz I&O: 04/28/17 04/29/17 04/30/17 07:59 06:59 06:59 Intake Total Output Total Balance Result Diagrams: 04/28/17 05:09 04/28/17 05:09 Additional Labs: Accuchecks 04/29/17 04/28/17 04/28/17 05:45 21:13 16:49 POC Glucose 173 H 173 H 251 H 04/28/17 11:24 POC Glucose 241 H EKG Reviewed by me: Yes Phys Exam - Physical Examination Constitutional: NAD HEENT: PERRLA, moist MMs, sclera anicteric Neck: no JVD, supple Respiratory: no wheezing, no rales, no rhonchi Cardiovascular: RRR, no significant murmur, no rub Gastrointestinal: soft, non-tender, no distention, positive bowel sounds Musculoskeletal: no edema, pulses present Neurological: moves all 4 limbs Lymphatic: no nodes Psychiatric: normal affect Skin: no rash, normal turgor Dx/Plan (1) KAPIL (acute kidney injury) Code(s): N17.9 - ACUTE KIDNEY FAILURE, UNSPECIFIED Status: Acute (2) CHF exacerbation Code(s): I50.9 - HEART FAILURE, UNSPECIFIED Status: Acute Qualifiers: Congestive heart failure type: diastolic Qualified Code(s): I50.33 - Acute on chronic diastolic (congestive) heart failure Comment: now euvolemic (3) Fracture of left inferior pubic ramus Code(s): S32.592A - OTH FRACTURE OF LEFT PUBIS, INIT ENCNTR FOR CLOSED FRACTURE Status: Acute Qualifiers: Encounter type: subsequent encounter Fracture type: closed (4) Hyponatremia Code(s): E87.1 - HYPO-OSMOLALITY AND HYPONATREMIA Status: Acute Comment: likely due to dehydration (5) Left acetabular fracture Code(s): S32.402A - UNSP FRACTURE OF LEFT ACETABULUM, INIT FOR CLOS FX Status : Acute Qualifiers: Encounter type: subsequent encounter Sublocation of acetabulum: unspecified portion of acetabulum Fracture type: closed (6) Abnormal LFTs Code(s): R79.89 - OTHER SPECIFIED ABNORMAL FINDINGS OF BLOOD CHEMISTRY Status : Chronic (7) BPH (benign prostatic hyperplasia) Code(s): N40.0 - BENIGN PROSTATIC HYPERPLASIA WITHOUT LOWER URINRY TRACT SYMP Status: Chronic Qualifiers: Lower urinary tract symptom presence: unspecified whether lower urinary tract symptoms present Qualified Code(s): N40.0 - Benign prostatic hyperplasia without lower urinary tract symptoms (8) CAD (coronary artery disease) Code(s): I25.10 - ATHSCL HEART DISEASE OF [place] CORONARY ARTERY W/O ANG PCTRS Status: Chronic Qualifiers: Coronary Disease-Associated Artery/Lesion type: bypass graft [place] vs. 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: Chronic (11) Coagulopathy Status: Chronic (12) Diabetes type 2, controlled Code(s): E11.9 - TYPE 2 DIABETES MELLITUS WITHOUT COMPLICATIONS Status: Chronic (13) GERD (gastroesophageal reflux disease) Code(s): K21.9 - GASTRO-ESOPHAGEAL REFLUX DISEASE WITHOUT ESOPHAGITIS Status: Chronic Qualifiers: Esophagitis presence: esophagitis presence not specified Qualified Code(s) : K21.9 - Gastro-esophageal reflux disease without esophagitis (14) Hypertension Code(s): I10 - ESSENTIAL (PRIMARY) HYPERTENSION Status: Chronic Qualifiers: Hypertension type: essential hypertension Qualified Code(s): I10 - Essential (primary) hypertension (15) Pancytopenia Code(s): D61.818 - OTHER PANCYTOPENIA Status: Chronic (16) Paroxysmal atrial fibrillation Code(s): I48.0 - PAROXYSMAL ATRIAL FIBRILLATION Status: Chronic (17) Thrombocytopenia Code(s): D69.6 - THROMBOCYTOPENIA, UNSPECIFIED Status: Chronic Comment: due to cirrhosis (18) Hepatic encephalopathy Code(s): K72.90 - HEPATIC FAILURE, UNSPECIFIED WITHOUT COMA Status: Suspected (19) Acute metabolic encephalopathy Code(s): G93.41 - METABOLIC ENCEPHALOPATHY Status: Acute (20) Dyslipidemia Code(s): E78.5 - HYPERLIPIDEMIA, UNSPECIFIED Status: Chronic (21) Yeast UTI Code(s): B37.49 - OTHER UROGENITAL CANDIDIASIS Status: Acute (22) Moderate tricuspid regurgitation by prior echocardiogram Code(s): I07.1 - RHEUMATIC TRICUSPID INSUFFICIENCY Status: Chronic - Plan cont current plan of care * will start diflucan * will repeat labs tomorrow * will consult neurology for his continous altered mental status * medication reviewed as below * symptomatic treatment. Review of Systems - Review of Systems Other: not reliable due to AMS - Medications/Allergies Allergies/Adverse Reactions: Allergies Allergy/AdvReac Type Severity Reaction Status Date / Time amoxicillin [Amoxicillin] Allergy Verified 11/21/16 22:58 codeine Allergy Verified 11/21/16 22:58 iodine Allergy Verified 11/21/16 22:58 Penicillins Allergy Verified 11/21/16 23:00 Sulfa (Sulfonamide Allergy Verified 11/21/16 22:58 Antibiotics) sulfamethoxazole Allergy Verified 11/21/16 22:58 [From Bactrim] trimethoprim [From Bactrim] Allergy Verified 11/21/16 22:58 Medications: Current Medications Acetaminophen (Tylenol) 650 mg PO Q4H PRN PRN Reason: Headache/Fever or Pain Al Hydroxide/Mg Hydroxide (Maalox) 30 ml PO Q6H PRN PRN Reason: Heartburn or Indigestion Albuterol/Ipratropium (Duoneb) 3 ml NEB [id number] [facility] Last Admin: 04/29/17 07:00 Dose: 3 ml Artificial Tears (Tears Naturale) 0 drop EA EYE PRN PRN PRN Reason: Dry Eyes Calcium Carbonate (Tums) 1,000 mg PO Q4H PRN PRN Reason: Heartburn or Indigestion Cyanocobalamin (Vitamin B-12) 1,000 mcg PO DAILY [facility] Last Admin: 04/28/17 10:19 Dose: 1,000 mcg Dextrose/Water (Dextrose 50%) 25 gm SLOW IVP PRN PRN PRN Reason: Hypoglycemia Digoxin (Lanoxin) 0.125 mg PO DAILY [facility] Last Admin: 04/28/17 10:19 Dose: 0.125 mg Folic Acid (Folvite) 1 mg PO DAILY [facility] Last Admin: 04/28/17 10:20 Dose: 1 mg Glucagon (Glucagon) 1 mg IM PRN PRN PRN Reason: Hypoglycemia Guaifenesin (Robitussin Sf) 200 mg PO Q4H PRN PRN Reason: Cough Guaifenesin (Mucinex) 600 mg PO Q12HR [facility] Last Admin: 04/28/17 21:24 Dose: 600 mg Hydralazine HCl (Apresoline) 10 mg SLOW IVP Q4H PRN PRN Reason: Systolic BP > 180 Dextrose/Water (D5w) 1,000 mls @ 0 mls/hr IV .Q0M PRN; As Directed PRN Reason: Hypoglycemia Fluconazole/Sodium Chloride (100 mg/ Device) 50 mls @ 100 mls/hr IVPB DAILY [facility] Insulin Human Lispro (Humalog) 0 units SC .AGGRESSIVE SLIDING PRN PRN Reason: Aggressive Correctional Scale Last Admin: 04/28/17 18:28 Dose: 9 unit Insulin Human Lispro (Humalog) 0 units SC .BEDTIME SLIDING SC PRN PRN Reason: Bedtime Correctional Scale Last Admin: 04/26/17 21:20 Dose: 3 unit Mineral Oil/White Petrolatum (Eucerin Cream) 0 gm TOP BIDPRN PRN PRN Reason: Dry Skin Neomycin Sulfate (Neomycin Sulfate) 500 mg PO Q12HR [facility] Last Admin: 04/28/17 21:24 Dose: 500 mg Ondansetron HCl (Zofran Odt) 4 mg PO Q6H PRN PRN Reason: Nausea/Vomiting Ondansetron HCl (Zofran) 4 mg IVP Q6H PRN PRN Reason: Nausea/Vomiting Pantoprazole Sodium (Protonix) 40 mg PO DAILY [facility] Last Admin: 04/28/17 10:20 Dose: 40 mg Phenol (Chloraseptic [place] 180 Ml Bot) 0 ml PO PRN PRN PRN Reason: Sore Throat Rifaximin (Xifaxan) 550 mg PO BID [facility] Last Admin: 04/28/17 21:24 Dose: 550 mg Sodium Chloride ([place] Nasal [place] 0.65%) 0 ml EA NARE QIDPRN PRN PRN Reason: Nasal Congestion Sodium Chloride (Flush - Normal Saline) 10 ml IVF Q12HR [facility] Last Admin: 04/28/17 21:25 Dose: 10 ml Sodium Chloride (Flush - Normal Saline) 10 ml IVF PRN PRN PRN Reason: Saline Flush Tamsulosin HCl (Flomax) 0.4 mg PO DAILY [facility] Last Admin: 04/28/17 10:19 Dose: 0.4 mg
[2017-04-29] MEDS: Rifaximin 550 MG TAB PO SCH ×2 (09:50→20:57)
[2017-04-29] MEDS: Fluconazole In NaCl,Iso-Osm 100 MG in Premix Bag 1 BAG IVPB SCH ×2 (09:50)
[2017-04-29] MEDS: HumaLOG 300 UNITS/3 ML VIAL SC PRN (18:33)
--- NOTE | 2017-04-30 00:02 | CON ---
DATE OF CONSULTATION: 04/29/2017 REASON FOR CONSULTATION: Altered mental status. REFERRING PROVIDER: Suresh Stoner MD HISTORY OF PRESENT ILLNESS: Mr. Quesada is a pleasant 81-year-old male who has been consulted for evaluation of altered mental status. History is obtained from the patient's 2 sons who were present at the bedside. Son reports that the patient had fallen on 2 or 3 occasions before being admitted to the hospital. He was found to have a nondisplaced left acetabular and left inferior pubic ramus fracture, for which he is being admitted for further treatment. They report that since being admitted to the hospital they have noticed a gradual decline in his mentation. He is being more sleepy and lethargic during the daytime. They do note that he does not sleep during the nighttime. They report that at baseline he is able to communicate and he is awake, alert, and oriented x3. They report that he has liver cirrhosis and at times when his ammonia level goes up, he develops encephalopathy that tends to clear up once his ammonia level comes back down. However, they feel that this confusion is much different than it has been in the past. They report that he has occasional difficulty with remembering conversations; however, they denied any difficulty with his memory. They also denied any history of hallucinations or delusions. PAST MEDICAL HISTORY: Significant for hypertension, congestive heart failure, nonalcoholic cirrhosis of the liver, coagulopathy due to liver disease, COPD, diabetes, dyslipidemia, GERD, pancytopenia, paroxysmal atrial fibrillation, and recent pelvic fracture. PAST SURGICAL HISTORY: Significant for CABG, pacemaker placement. SOCIAL HISTORY: He drinks alcohol on social occasions. He is a former smoker. He does not perform any illicit drug use. He is retired and lives with his family on his own. FAMILY HISTORY: Noncontributory. CURRENT MEDICATIONS: Please review MAR. ALLERGIES: Include AMOXICILLIN, CODEINE, IODINE, PENICILLIN, and SULFA DRUGS. REVIEW OF SYSTEMS: The patient reported no headache, chest pain, palpitation, nausea or vomiting. He does complain of feeling tired and fatigued. PHYSICAL EXAMINATION: VITAL SIGNS: Blood pressure of 149/72, pulse of 83, temperature of 98.4, respirations of 18, O2 sats of 93% on room air. GENERAL: Well-developed, well-nourished male resting in bed in no apparent distress. RESPIRATORY: Clear to auscultation bilaterally. CARDIOVASCULAR: Regular rate and rhythm. NEUROLOGIC: Mental status: The patient is drowsy appearing. He does wake up to verbal stimuli. He is able to follow simple commands. He was able to state his first and last name. He was able to state his age, date of , and the name of his children. He is able to recognize his family members who were present at the bedside. Again, he was able to follow simple commands. Speech and language: Fluent speech. Cranial nerves: Pupils are 3 mm and reactive. Visual li are intact. Extraocular muscles are intact. No nystagmus is noted. The face appears symmetric. The motor exam showed normal tone and bulk with a 5/5 strength in both upper and lower extremities. Babinski: Plantar responses flexion bilaterally. Coordination: Gait and Romberg are not tested. LABORATORY DATA: Reviewed, which included CBC, coag panel, CMP, BNP, CPK, ammonia level, urinalysis, which is significant for WBC of 14.5, hemoglobin 13.6 , hematocrit of 40.6, platelet count of 35. PT of 18.7, INR of 1.5, PTT of 31.8. Sodium of 129, BUN of 51, creatinine of 1.18, AST of 127, ALT of 80. CPK of 1111, otherwise unremarkable. IMAGING STUDIES: CT head without contrast was reviewed, which showed no acute intracranial abnormality. IMPRESSION: 1. Altered mental status, likely toxic metabolic encephalopathy. 2. Hyponatremia. 3. Acute kidney injury. PLAN: Mr. Quesada is a pleasant 81-year-old male who presented with the frequent falls that were likely secondary to orthostatic hypotension and he is noted to have increased lethargicness and confusion. This is likely multifactorial in that hyponatremia, acute kidney injury, and deconditioning has resulted in toxic metabolic encephalopathy. I would recommend continuing supportive care. Continue current medical management. No further neurological workup needed at this time. If he continues to be confused after corrections of underlying metabolic issues, then it may be beneficial to obtain a lumbar puncture; however, at this point, I do not think it is needed. Thank you for your consultation. ROBI
[2017-04-30 05:39] LABS: ALT (SGPT) 47 U/L (8-55); AST (SGOT) 61 U/L (5-34); Alkaline Phosphatase 114 U/L (40-150); Anion Gap 13 mmol/L (10-20); BUN (Urea Nitrogen) 34 mg/dL (8.4-25.7); Bilirubin, Total 4.8 mg/dL (0.2-1.2); CK (CPK) 308 U/L (30-200); Calc. Creatinine Clearance 74 mL/min (70-130); Calcium 7.7 mg/dL (7.8-10.44); Carbon Dioxide 24 mmol/L (23-31); Chloride 95 mmol/L (98-107); Estimated GFR-MDRD 89; Globulin 2.4 g/dL (2.4-3.5); Magnesium 1.9 mg/dL (1.6-2.6); Protein, Total 5.1 g/dL (5.8-8.1)
[2017-04-30 05:44] LABS: Phosphorus 1.6 mg/dL (2.3-4.7)
[2017-04-30 05:52] LABS: Band 6 % (5-11); Hematocrit 37.8 % (42.0-52.0); Neutrophil 87 % (42-75); Red Blood Cell (RBC) Count 3.54 mill/uL (4.70-6.10); White Blood Cell (WBC) Count 11.8 thou/uL (4.8-10.8)
[2017-04-30] MEDS: HumaLOG 300 UNITS/3 ML VIAL SC PRN ×2 (05:55→12:30)
[2017-04-30] MEDS ORDERED: Sodium Chloride 0.9% 10 ML ONE (08:45)
[2017-04-30] MEDS: Neomycin 500 mg Tablet PO SCH ×2 (09:55→21:06)
[2017-04-30] MEDS: guaiFENesin ER 600 MG TAB PO SCH ×2 (09:55→21:00)
[2017-04-30] MEDS: Tamsulosin HCl 0.4 MG CAP PO SCH (09:55)
[2017-04-30] MEDS: Digoxin 0.125 MG TAB PO SCH (09:55)
[2017-04-30] MEDS: Cyanocobalamin (Vitamin B-12) 1,000 MCG TAB PO SCH (09:56)
[2017-04-30] MEDS: Folic Acid 1 MG TAB PO SCH (09:56)
[2017-04-30] MEDS: Fluconazole In NaCl,Iso-Osm 100 MG in Premix Bag 1 BAG IVPB SCH ×2 (09:56)
[2017-04-30] MEDS: Rifaximin 550 MG TAB PO SCH ×2 (09:57→21:07)
--- NOTE | 2017-04-30 13:35 | PDOC.PN ---
- Subjective Encounter Start Date: 04/30/17 Encounter Start Time: 08:15 Patient seen and examined. No new complaints. No overnight events - Objective Resuscitation Status: Resuscitation Status FULL:Full Resuscitation MAR Reviewed: Yes Vital Signs & Weight: Vital Signs (12 hours) Temp Pulse Resp BP Pulse Ox 04/30/17 13:08 74 18 93 L 04/30/17 12:50 99.3 F 87 18 141/70 H 92 L 04/30/17 09:55 70 04/30/17 07:15 98.9 F 83 20 133/69 95 04/30/17 06:47 75 18 91 L 04/30/17 03:49 98.7 F 85 20 149/70 H 93 L Weight Weight 164 lb 11.2 oz I&O: 04/29/17 04/30/17 05/01/17 06:59 06:59 06:59 Intake Total 480 Output Total 350 Balance 130 Result Diagrams: 04/30/17 04:20 04/30/17 04:20 Additional Labs: Accuchecks 04/30/17 04/29/17 04/29/17 11:56 20:32 16:52 POC Glucose 258 H 216 H 208 H EKG Reviewed by me: Yes Phys Exam - Physical Examination Constitutional: NAD HEENT: PERRLA, moist MMs, sclera anicteric Neck: no JVD, supple Respiratory: no wheezing, no rales, no rhonchi Cardiovascular: RRR, no significant murmur, no rub Gastrointestinal: soft, non-tender, no distention, positive bowel sounds Musculoskeletal: no edema, pulses present Neurological: moves all 4 limbs Lymphatic: no nodes Psychiatric: normal affect Skin: no rash, normal turgor Dx/Plan (1) KPAIL (acute kidney injury) Code(s): N17.9 - ACUTE KIDNEY FAILURE, UNSPECIFIED Status: Acute (2) CHF exacerbation Code(s): I50.9 - HEART FAILURE, UNSPECIFIED Status: Acute Qualifiers: Congestive heart failure type: diastolic Qualified Code(s): I50.33 - Acute on chronic diastolic (congestive) heart failure Comment: now euvolemic (3) Fracture of left inferior pubic ramus Code(s): S32.592A - OTH FRACTURE OF LEFT PUBIS, INIT ENCNTR FOR CLOSED FRACTURE Status: Acute Qualifiers: Encounter type: subsequent encounter Fracture type: closed (4) Hyponatremia Code(s): E87.1 - HYPO-OSMOLALITY AND HYPONATREMIA Status: Acute Comment: likely due to dehydration (5) Left acetabular fracture Code(s): S32.402A - UNSP FRACTURE OF LEFT ACETABULUM, INIT FOR CLOS FX Status : Acute Qualifiers: Encounter type: subsequent encounter Sublocation of acetabulum: unspecified portion of acetabulum Fracture type: closed (6) Abnormal LFTs Code(s): R79.89 - OTHER SPECIFIED ABNORMAL FINDINGS OF BLOOD CHEMISTRY Status : Chronic (7) BPH (benign prostatic hyperplasia) Code(s): N40.0 - BENIGN PROSTATIC HYPERPLASIA WITHOUT LOWER URINRY TRACT SYMP Status: Chronic Qualifiers: Lower urinary tract symptom presence: unspecified whether lower urinary tract symptoms present Qualified Code(s): N40.0 - Benign prostatic hyperplasia without lower urinary tract symptoms (8) CAD (coronary artery disease) Code(s): I25.10 - ATHSCL HEART DISEASE OF [place] CORONARY ARTERY W/O ANG PCTRS Status: Chronic Qualifiers: Coronary Disease-Associated Artery/Lesion type: bypass graft [place] vs. 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: Chronic (11) Coagulopathy Status: Chronic (12) Diabetes type 2, controlled Code(s): E11.9 - TYPE 2 DIABETES MELLITUS WITHOUT COMPLICATIONS Status: Chronic (13) GERD (gastroesophageal reflux disease) Code(s): K21.9 - GASTRO-ESOPHAGEAL REFLUX DISEASE WITHOUT ESOPHAGITIS Status: Chronic Qualifiers: Esophagitis presence: esophagitis presence not specified Qualified Code(s) : K21.9 - Gastro-esophageal reflux disease without esophagitis (14) Hypertension Code(s): I10 - ESSENTIAL (PRIMARY) HYPERTENSION Status: Chronic Qualifiers: Hypertension type: essential hypertension Qualified Code(s): I10 - Essential (primary) hypertension (15) Pancytopenia Code(s): D61.818 - OTHER PANCYTOPENIA Status: Chronic (16) Paroxysmal atrial fibrillation Code(s): I48.0 - PAROXYSMAL ATRIAL FIBRILLATION Status: Chronic (17) Thrombocytopenia Code(s): D69.6 - THROMBOCYTOPENIA, UNSPECIFIED Status: Chronic Comment: due to cirrhosis (18) Hepatic encephalopathy Code(s): K72.90 - HEPATIC FAILURE, UNSPECIFIED WITHOUT COMA Status: Suspected (19) Acute metabolic encephalopathy Code(s): G93.41 - METABOLIC ENCEPHALOPATHY Status: Acute (20) Dyslipidemia Code(s): E78.5 - HYPERLIPIDEMIA, UNSPECIFIED Status: Chronic (21) Yeast UTI Code(s): B37.49 - OTHER UROGENITAL CANDIDIASIS Status: Acute (22) Moderate tricuspid regurgitation by prior echocardiogram Code(s): I07.1 - RHEUMATIC TRICUSPID INSUFFICIENCY Status: Chronic - Plan cont current plan of care, continue antibiotics, PT/OT, social media project manager * pt is confused, not ready for discharge * continue diflucan * neurology recommendation noted * no need of tele * transfer to medical * will need placement * medication reviewed as below * symptomatic treatment. Review of Systems - Review of Systems Other: not reliable due to AMS - Medications/Allergies Allergies/Adverse Reactions: Allergies Allergy/AdvReac Type Severity Reaction Status Date / Time amoxicillin [Amoxicillin] Allergy Verified 11/21/16 22:58 codeine Allergy Verified 11/21/16 22:58 iodine Allergy Verified 11/21/16 22:58 Penicillins Allergy Verified 11/21/16 23:00 Sulfa (Sulfonamide Allergy Verified 11/21/16 22:58 Antibiotics) sulfamethoxazole Allergy Verified 11/21/16 22:58 [From Bactrim] trimethoprim [From Bactrim] Allergy Verified 11/21/16 22:58 Medications: Current Medications Acetaminophen (Tylenol) 650 mg PO Q4H PRN PRN Reason: Headache/Fever or Pain Al Hydroxide/Mg Hydroxide (Maalox) 30 ml PO Q6H PRN PRN Reason: Heartburn or Indigestion Albuterol/Ipratropium (Duoneb) 3 ml NEB [id number] [facility] Last Admin: 04/30/17 13:08 Dose: 3 ml Artificial Tears (Tears Naturale) 0 drop EA EYE PRN PRN PRN Reason: Dry Eyes Calcium Carbonate (Tums) 1,000 mg PO Q4H PRN PRN Reason: Heartburn or Indigestion Cyanocobalamin (Vitamin B-12) 1,000 mcg PO DAILY [facility] Last Admin: 04/30/17 09:56 Dose: 1,000 mcg Dextrose/Water (Dextrose 50%) 25 gm SLOW IVP PRN PRN PRN Reason: Hypoglycemia Digoxin (Lanoxin) 0.125 mg PO DAILY [facility] Last Admin: 04/30/17 09:55 Dose: 0.125 mg Folic Acid (Folvite) 1 mg PO DAILY [facility] Last Admin: 04/30/17 09:56 Dose: 1 mg Glucagon (Glucagon) 1 mg IM PRN PRN PRN Reason: Hypoglycemia Guaifenesin (Robitussin Sf) 200 mg PO Q4H PRN PRN Reason: Cough Guaifenesin (Mucinex) 600 mg PO Q12HR [facility] Last Admin: 04/30/17 09:55 Dose: 600 mg Hydralazine HCl (Apresoline) 10 mg SLOW IVP Q4H PRN PRN Reason: Systolic BP > 180 Dextrose/Water (D5w) 1,000 mls @ 0 mls/hr IV .Q0M PRN; As Directed PRN Reason: Hypoglycemia Fluconazole/Sodium Chloride (100 mg/ Device) 50 mls @ 100 mls/hr IVPB DAILY [facility] Last Admin: 04/30/17 09:56 Dose: 50 mls Insulin Human Lispro (Humalog) 0 units SC .AGGRESSIVE SLIDING PRN PRN Reason: Aggressive Correctional Scale Last Admin: 04/30/17 12:30 Dose: 9 unit Insulin Human Lispro (Humalog) 0 units SC .BEDTIME SLIDING SC PRN PRN Reason: Bedtime Correctional Scale Last Admin: 04/26/17 21:20 Dose: 3 unit Mineral Oil/White Petrolatum (Eucerin Cream) 0 gm TOP BIDPRN PRN PRN Reason: Dry Skin Miscellaneous Medication (Phos-Nak) 1 pkt PO TID [facility] Stop: 05/01/17 21:01 Last Admin: 04/30/17 09:57 Dose: 1 pkt Neomycin Sulfate (Neomycin Sulfate) 500 mg PO Q12HR [facility] Last Admin: 04/30/17 09:55 Dose: 500 mg Ondansetron HCl (Zofran Odt) 4 mg PO Q6H PRN PRN Reason: Nausea/Vomiting Ondansetron HCl (Zofran) 4 mg IVP Q6H PRN PRN Reason: Nausea/Vomiting Pantoprazole Sodium (Protonix) 40 mg PO DAILY [facility] Last Admin: 04/30/17 09:55 Dose: 40 mg Phenol (Chloraseptic [place] 180 Ml Bot) 0 ml PO PRN PRN PRN Reason: Sore Throat Rifaximin (Xifaxan) 550 mg PO BID [facility] Last Admin: 04/30/17 09:57 Dose: 550 mg Sodium Chloride ([place] Nasal [place] 0.65%) 0 ml EA NARE QIDPRN PRN PRN Reason: Nasal Congestion Sodium Chloride (Flush - Normal Saline) 10 ml IVF Q12HR [facility] Last Admin: 04/30/17 09:54 Dose: 10 ml Sodium Chloride (Flush - Normal Saline) 10 ml IVF PRN PRN PRN Reason: Saline Flush Tamsulosin HCl (Flomax) 0.4 mg PO DAILY [facility] Last Admin: 04/30/17 09:55 Dose: 0.4 mg
[2017-04-30] MEDS ORDERED: Potassium Phosphate 15 MMOL in Sodium Chloride 0.9% 250 ML 250 ML IVPB SCH (16:00)
[2017-04-30 16:44] LABS: Hematocrit 37.1 % (42.0-52.0)
[2017-04-30] MEDS: Sodium Chloride 0.9% 1,000 ML IV SCH (18:08)
--- NOTE | 2017-04-30 20:09 | PRG ---
DATE OF SERVICE: 04/30/2017 SUBJECTIVE: Patient was seen and examined at bedside and overnight events noted. Patient denies an y shortness of breath or chest pain or palpitation. No history of nausea or vomiting or diarrhea or fever or chills or cramps. OBJECTIVE: General: This is a well-built male VITAL SIGNS: Temperature 98.2, pulse 84, respiratory 20, blood pressure 137/66. HEENT: Atraumatic, normocephalic, Oral mucosa is moist. NECK: Supple. CARDIOVASCULAR: S1, S2 heard. Rate and rhythm regular. RESPIRATORY: Clear to auscultation. GASTROINTESTINAL: Abdomen is soft. MUSCULOSKELETAL: No tenderness. No edema. DERMATOLOGIC: No skin rash. NEUROLOGIC: Alert and awake and oriented x3. No focal neurologic deficits. Moving all the extremi ties. PSYCHIATRIC: Mood and affect normal. LABORATORY DATA: Potassium is 4.3. Sodium is 128, BUN 34, creatinine 0.8. ASSESSMENT AND PLAN: 1. Hyponatremia, most likely hypovolemic. The patient did respond to IV fluids and the plan is to replace IV fluids. 2. Hypochloremia. 3. Acute kidney injury. Continue IV fluids. 4. Hypoalbuminemia. Increase proteins. 5. Cirrhosis. 6. Edema. Plan is to start back on IV fluids and follow up.
--- NOTE | 2017-04-30 23:53 | PRG ---
DATE OF SERVICE: 04/29/2017 SUBJECTIVE: Patient was seen and examined at bedside and overnight events noted. Patient denies an y shortness of breath or chest pain or palpitation. No history of nausea or vomiting or diarrhea or fever or chills or cramps. OBJECTIVE: General: This is a well built male, in no apparent distress. VITAL SIGNS: Temperature 98, pulse 77, respirations , blood pressure 149/76. HEENT: Atraumatic, normocephalic. Oral mucosa is moist. NECK: Supple. CARDIOVASCULAR: S1, S2 heard. Rate and rhythm regular. RESPIRATORY: Clear to auscultation. GASTROINTESTINAL: Abdomen is soft. MUSCULOSKELETAL: No tenderness. No edema. DERMATOLOGIC: No skin rash. NEUROLOGIC: Alert and awake and oriented x3. No focal neurologic deficits. Moving all the extremi ties. PSYCHIATRIC: Mood and affect normal. LABORATORY DATA: Not done today. ASSESSMENT AND PLAN: 1. Hyponatremia, plan is to continue on albumin. 2. Acute kidney injury, stable. 3. Cirrhosis. 4. Anemia. 5. Edema, controlled. 6. Hypertension. Plan is to continue on albumin and monitor sodium level.
[2017-05-01 02:28] LABS: Hematocrit 37.6 % (42.0-52.0)
[2017-05-01 02:53] LABS: Anion Gap 14 mmol/L (10-20); BUN (Urea Nitrogen) 27 mg/dL (8.4-25.7); Calc. Creatinine Clearance 84 mL/min (70-130); Calcium 7.7 mg/dL (7.8-10.44); Carbon Dioxide 24 mmol/L (23-31); Chloride 96 mmol/L (98-107); Estimated GFR-MDRD Greater than 90
[2017-05-01 08:50] LABS: Hematocrit 41.2 % (42.0-52.0)
--- NOTE | 2017-05-01 09:25 | PRG ---
DATE OF SERVICE: 05/01/2017 SUBJECTIVE: The patient was seen and examined at bedside, he remains confused, nonverbal and somnol ent. PHYSICAL EXAMINATION: GENERAL: Elderly male who is now somnolent. VITAL SIGNS: Temperature 97, pulse 80, respirations 18, blood pressure 146/82. HEENT: Atraumatic, normocephalic. NECK: Supple. CARDIOVASCULAR: S1, S2 heard. RESPIRATORY: Clear anteriorly. ABDOMEN: Soft. MUSCULOSKELETAL: 1+ edema. DERMATOLOGIC: No skin rashes. NEUROLOGIC: Somnolent. LABORATORY DATA: Sodium is 130, potassium is 4.4, BUN 27, creatinine 0.7. ASSESSMENT AND PLAN: 1. Hyponatremia, most likely hypovolemic, is correcting with IV fluids. Continue normal saline at 75 mL per hour. 2. Hypochloremia also getting better with IV fluids. 3. Acute kidney injury, better. 4. Azotemia better. 5. Edema, controlled. 6. Hypertension, stable. Plan is to continue IV fluids for 1 more day. We will follow.
[2017-05-01] MEDS: Cyanocobalamin (Vitamin B-12) 1,000 MCG TAB PO SCH (09:28)
[2017-05-01] MEDS: Rifaximin 550 MG TAB PO SCH ×2 (09:28→20:13)
[2017-05-01] MEDS: Neomycin 500 mg Tablet PO SCH ×2 (09:28→20:14)
[2017-05-01] MEDS: Digoxin 0.125 MG TAB PO SCH (09:28)
[2017-05-01] MEDS: Tamsulosin HCl 0.4 MG CAP PO SCH (09:28)
[2017-05-01] MEDS: Folic Acid 1 MG TAB PO SCH (09:28)
[2017-05-01] MEDS: guaiFENesin ER 600 MG TAB PO SCH ×2 (09:28→20:14)
[2017-05-01] MEDS: Sodium Chloride 0.9% 1,000 ML IV SCH (09:33)
[2017-05-01] MEDS: Fluconazole In NaCl,Iso-Osm 100 MG in Premix Bag 1 BAG IVPB SCH ×2 (09:34)
--- NOTE | 2017-05-01 13:41 | PDOC.PN ---
- Subjective Encounter Start Date: 05/01/17 Encounter Start Time: 10:40 Subjective: lethargic, responds to verbal questions - Objective Resuscitation Status: Resuscitation Status FULL:Full Resuscitation MAR Reviewed: Yes Vital Signs & Weight: Vital Signs (12 hours) Temp Pulse Resp BP Pulse Ox 05/01/17 11:44 97.8 F 91 16 148/78 H 91 L 05/01/17 09:28 88 05/01/17 08:28 97.8 F 88 16 146/82 H 92 L 05/01/17 08:00 97.8 F 91 16 05/01/17 06:56 90 16 05/01/17 05:00 98.4 F 94 18 136/74 93 L Weight Weight 166 lb 3 oz I&O: 04/30/17 05/01/17 05/02/17 06:59 06:59 06:59 Intake Total 480 600 Output Total 350 Balance 130 600 Result Diagrams: 05/01/17 08:32 05/01/17 02:07 Additional Labs: Accuchecks 05/01/17 05/01/17 04/30/17 11:18 04:25 19:51 POC Glucose 223 H 230 H 190 H 04/30/17 17:27 POC Glucose 180 H Phys Exam - Physical Examination HEENT: PERRLA icterus++ Neck: supple jvd+ Respiratory: no wheezing rales+ Cardiovascular: RRR, no significant murmur Gastrointestinal: soft, no distention, positive bowel sounds Musculoskeletal: pulses present Neurological: non-focal, moves all 4 limbs Dx/Plan (1) KAPIL (acute kidney injury) Code(s): N17.9 - ACUTE KIDNEY FAILURE, UNSPECIFIED Status: Resolved (2) Hyponatremia Code(s): E87.1 - HYPO-OSMOLALITY AND HYPONATREMIA Status: Acute (3) Left acetabular fracture Code(s): S32.402A - UNSP FRACTURE OF LEFT ACETABULUM, INIT FOR CLOS FX Status : Acute Qualifiers: Encounter type: subsequent encounter Sublocation of acetabulum: unspecified portion of acetabulum Fracture type: closed (4) Fracture of left inferior pubic ramus Code(s): S32.592A - OTH FRACTURE OF LEFT PUBIS, INIT ENCNTR FOR CLOSED FRACTURE Status: Acute Qualifiers: Encounter type: subsequent encounter Fracture type: closed (5) CAD (coronary artery disease) Code(s): I25.10 - ATHSCL HEART DISEASE OF [place] CORONARY ARTERY W/O ANG PCTRS Status: Chronic Qualifiers: Coronary Disease-Associated Artery/Lesion type: bypass graft [place] vs. transplanted heart: [place] heart Associated angina: without angina Qualified Code(s): I25.810 - Atherosclerosis of coronary artery bypass graft(s) without angina pectoris (6) DM type 2 (diabetes mellitus, type 2) Status: Chronic Qualifiers: Diabetes mellitus complication status: with unspecified complications Diabetes mellitus terminal make up operator insulin use: without terminal make up operator use Qualified Code( s): E11.8 - Type 2 diabetes mellitus with unspecified complications (7) Thrombocytopenia Code(s): D69.6 - THROMBOCYTOPENIA, UNSPECIFIED Status: Chronic Comment: due to cirrhosis (8) BPH (benign prostatic hyperplasia) Code(s): N40.0 - BENIGN PROSTATIC HYPERPLASIA WITHOUT LOWER URINRY TRACT SYMP Status: Chronic Qualifiers: Lower urinary tract symptom presence: unspecified whether lower urinary tract symptoms present Qualified Code(s): N40.0 - Benign prostatic hyperplasia without lower urinary tract symptoms (9) COPD (chronic obstructive pulmonary disease) Status: Chronic Qualifiers: COPD type: unspecified COPD Qualified Code(s): J44.9 - Chronic obstructive pulmonary disease, unspecified (10) Cirrhosis of liver not due to alcohol Status: Chronic (11) Dyslipidemia Code(s): E78.5 - HYPERLIPIDEMIA, UNSPECIFIED Status: Chronic (12) GERD (gastroesophageal reflux disease) Code(s): K21.9 - GASTRO-ESOPHAGEAL REFLUX DISEASE WITHOUT ESOPHAGITIS Status: Chronic Qualifiers: Esophagitis presence: esophagitis presence not specified Qualified Code(s) : K21.9 - Gastro-esophageal reflux disease without esophagitis (13) Hypertension Code(s): I10 - ESSENTIAL (PRIMARY) HYPERTENSION Status: Chronic Qualifiers: Hypertension type: essential hypertension Qualified Code(s): I10 - Essential (primary) hypertension (14) Paroxysmal atrial fibrillation Code(s): I48.0 - PAROXYSMAL ATRIAL FIBRILLATION Status: Chronic (15) Physical deconditioning Code(s): R53.81 - OTHER MALAISE Status: Acute - Plan h/o falls with multiple bruises and fractures -: severe deconditioning -: poor prognosis -: restart oral diet, dc iv fluids, one dose lasix -: PT to mobilize as tolerated, will need swing bed * . Review of Systems - Medications/Allergies Allergies/Adverse Reactions: Allergies Allergy/AdvReac Type Severity Reaction Status Date / Time amoxicillin [Amoxicillin] Allergy Verified 11/21/16 22:58 codeine Allergy Verified 11/21/16 22:58 iodine Allergy Verified 11/21/16 22:58 Penicillins Allergy Verified 11/21/16 23:00 Sulfa (Sulfonamide Allergy Verified 11/21/16 22:58 Antibiotics) sulfamethoxazole Allergy Verified 11/21/16 22:58 [From Bactrim] trimethoprim [From Bactrim] Allergy Verified 11/21/16 22:58 Medications: Current Medications Acetaminophen (Tylenol) 650 mg PO Q4H PRN PRN Reason: Headache/Fever or Pain Al Hydroxide/Mg Hydroxide (Maalox) 30 ml PO Q6H PRN PRN Reason: Heartburn or Indigestion Albuterol/Ipratropium (Duoneb) 3 ml NEB [id number] [facility] Last Admin: 05/01/17 06:56 Dose: 3 ml Artificial Tears (Tears Naturale) 0 drop EA EYE PRN PRN PRN Reason: Dry Eyes Calcium Carbonate (Tums) 1,000 mg PO Q4H PRN PRN Reason: Heartburn or Indigestion Cyanocobalamin (Vitamin B-12) 1,000 mcg PO DAILY [facility] Last Admin: 05/01/17 09:28 Dose: Not Given Dextrose/Water (Dextrose 50%) 25 gm SLOW IVP PRN PRN PRN Reason: Hypoglycemia Digoxin (Lanoxin) 0.125 mg PO DAILY [facility] Last Admin: 05/01/17 09:28 Dose: Not Given Folic Acid (Folvite) 1 mg PO DAILY [facility] Last Admin: 05/01/17 09:28 Dose: Not Given Glucagon (Glucagon) 1 mg IM PRN PRN PRN Reason: Hypoglycemia Guaifenesin (Robitussin Sf) 200 mg PO Q4H PRN PRN Reason: Cough Guaifenesin (Mucinex) 600 mg PO Q12HR [facility] Last Admin: 05/01/17 09:28 Dose: Not Given Hydralazine HCl (Apresoline) 10 mg SLOW IVP Q4H PRN PRN Reason: Systolic BP > 180 Dextrose/Water (D5w) 1,000 mls @ 0 mls/hr IV .Q0M PRN; As Directed PRN Reason: Hypoglycemia Fluconazole/Sodium Chloride (100 mg/ Device) 50 mls @ 100 mls/hr IVPB DAILY [facility] Last Admin: 05/01/17 09:34 Dose: 50 mls Insulin Human Lispro (Humalog) 0 units SC .AGGRESSIVE SLIDING PRN PRN Reason: Aggressive Correctional Scale Last Admin: 04/30/17 12:30 Dose: 9 unit Insulin Human Lispro (Humalog) 0 units SC .BEDTIME SLIDING SC PRN PRN Reason: Bedtime Correctional Scale Last Admin: 04/26/17 21:20 Dose: 3 unit Mineral Oil/White Petrolatum (Eucerin Cream) 0 gm TOP BIDPRN PRN PRN Reason: Dry Skin Neomycin Sulfate (Neomycin Sulfate) 500 mg PO Q12HR [facility] Last Admin: 05/01/17 09:28 Dose: Not Given Ondansetron HCl (Zofran Odt) 4 mg PO Q6H PRN PRN Reason: Nausea/Vomiting Ondansetron HCl (Zofran) 4 mg IVP Q6H PRN PRN Reason: Nausea/Vomiting Pantoprazole Sodium (Protonix) 40 mg PO DAILY [facility] Last Admin: 05/01/17 09:28 Dose: Not Given Phenol (Chloraseptic [place] 180 Ml Bot) 0 ml PO PRN PRN PRN Reason: Sore Throat Rifaximin (Xifaxan) 550 mg PO BID [facility] Last Admin: 05/01/17 09:28 Dose: Not Given Sodium Chloride ([place] Nasal [place] 0.65%) 0 ml EA NARE QIDPRN PRN PRN Reason: Nasal Congestion Sodium Chloride (Flush - Normal Saline) 10 ml IVF Q12HR [facility] Last Admin: 05/01/17 09:28 Dose: Not Given Sodium Chloride (Flush - Normal Saline) 10 ml IVF PRN PRN PRN Reason: Saline Flush Tamsulosin HCl (Flomax) 0.4 mg PO DAILY [facility] Last Admin: 05/01/17 09:28 Dose: Not Given
[2017-05-01] MEDS ORDERED: Furosemide 40 MG/4 ML VIAL SLOW IVP SCH (14:00)
[2017-05-01 17:01] LABS: Hematocrit 42.5 % (42.0-52.0)
[2017-05-02] MEDS: Fluconazole In NaCl,Iso-Osm 100 MG in Premix Bag 1 BAG IVPB SCH ×2 (07:58)
[2017-05-02 09:45] LABS: Calcium 7.4 mg/dL (7.8-10.44); Chloride 101 mmol/L (98-107)
[2017-05-02 09:47] LABS: Anion Gap 19 mmol/L (10-20); Carbon Dioxide 17 mmol/L (23-31)
[2017-05-02 09:49] LABS: Calc. Creatinine Clearance 75 mL/min (70-130); Estimated GFR-MDRD 90
[2017-05-02 09:50] LABS: BUN (Urea Nitrogen) 32 mg/dL (8.4-25.7)
[2017-05-02] MEDS: Cyanocobalamin (Vitamin B-12) 1,000 MCG TAB PO SCH (10:05)
[2017-05-02] MEDS: Digoxin 0.125 MG TAB PO SCH (10:05)
[2017-05-02] MEDS: Folic Acid 1 MG TAB PO SCH (10:06)
[2017-05-02] MEDS: Neomycin 500 mg Tablet PO SCH ×2 (10:06→22:22)
[2017-05-02] MEDS: Rifaximin 550 MG TAB PO SCH ×2 (10:06→22:22)
[2017-05-02] MEDS: guaiFENesin ER 600 MG TAB PO SCH ×2 (10:06→22:22)
[2017-05-02] MEDS: Tamsulosin HCl 0.4 MG CAP PO SCH (10:07)
[2017-05-02] MEDS ORDERED: Diltiazem 125 MG in Sodium Chloride 0.9% 100 ML IVPB SCH (11:37)
--- NOTE | 2017-05-02 12:06 | PDOC.PN ---
- Subjective Encounter Start Date: 05/02/17 Encounter Start Time: 09:00 Subjective: not oriented this morning, trying to reach out for things in air -: no sob, is lethargic - Objective Resuscitation Status: Resuscitation Status FULL:Full Resuscitation MAR Reviewed: Yes Vital Signs & Weight: Vital Signs (12 hours) Temp Pulse Resp BP Pulse Ox 05/02/17 11:00 97.5 F L 140 H 24 H 149/89 H 96 05/02/17 10:05 137 H 05/02/17 08:00 97.5 F L 137 H 18 94 L 05/02/17 07:47 97.5 F L 137 H 18 117/72 94 L 05/02/17 06:33 110 H 18 95 Weight Weight 166 lb 8 oz I&O: 05/01/17 05/02/17 05/03/17 06:59 06:59 06:59 Intake Total 600 0 Output Total 820 Balance 600 -820 Result Diagrams: 05/01/17 16:53 05/02/17 08:46 Additional Labs: Accuchecks 05/02/17 05/02/17 05/01/17 11:15 05:03 19:59 POC Glucose 211 H 219 H 209 H 05/01/17 16:34 POC Glucose 223 H Phys Exam - Physical Examination HEENT: PERRLA dry mucosa, icterus++ Neck: no JVD, supple Respiratory: no wheezing, no rales Cardiovascular: no significant murmur, irregular Gastrointestinal: soft, non-tender, no distention, positive bowel sounds Musculoskeletal: no edema, pulses present Neurological: non-focal, moves all 4 limbs Dx/Plan (1) Paroxysmal atrial fibrillation Code(s): I48.0 - PAROXYSMAL ATRIAL FIBRILLATION Status: Acute (2) KAPIL (acute kidney injury) Code(s): N17.9 - ACUTE KIDNEY FAILURE, UNSPECIFIED Status: Resolved (3) Hyponatremia Code(s): E87.1 - HYPO-OSMOLALITY AND HYPONATREMIA Status: Resolved (4) Left acetabular fracture Code(s): S32.402A - UNSP FRACTURE OF LEFT ACETABULUM, INIT FOR CLOS FX Status : Acute Qualifiers: Encounter type: subsequent encounter Sublocation of acetabulum: unspecified portion of acetabulum Fracture type: closed (5) Fracture of left inferior pubic ramus Code(s): S32.592A - OTH FRACTURE OF LEFT PUBIS, INIT ENCNTR FOR CLOSED FRACTURE Status: Acute Qualifiers: Encounter type: subsequent encounter Fracture type: closed (6) CAD (coronary artery disease) Code(s): I25.10 - ATHSCL HEART DISEASE OF [place] CORONARY ARTERY W/O ANG PCTRS Status: Chronic Qualifiers: Coronary Disease-Associated Artery/Lesion type: bypass graft [place] vs. transplanted heart: [place] heart Associated angina: without angina Qualified Code(s): I25.810 - Atherosclerosis of coronary artery bypass graft(s) without angina pectoris (7) DM type 2 (diabetes mellitus, type 2) Status: Chronic Qualifiers: Diabetes mellitus complication status: with unspecified complications Diabetes mellitus manager long term care insulin use: without manager long term care use Qualified Code( s): E11.8 - Type 2 diabetes mellitus with unspecified complications (8) Thrombocytopenia Code(s): D69.6 - THROMBOCYTOPENIA, UNSPECIFIED Status: Chronic Comment: due to cirrhosis (9) BPH (benign prostatic hyperplasia) Code(s): N40.0 - BENIGN PROSTATIC HYPERPLASIA WITHOUT LOWER URINRY TRACT SYMP Status: Chronic Qualifiers: Lower urinary tract symptom presence: unspecified whether lower urinary tract symptoms present Qualified Code(s): N40.0 - Benign prostatic hyperplasia without lower urinary tract symptoms (10) COPD (chronic obstructive pulmonary disease) Status: Chronic Qualifiers: COPD type: unspecified COPD Qualified Code(s): J44.9 - Chronic obstructive pulmonary disease, unspecified (11) Cirrhosis of liver not due to alcohol Status: Chronic (12) Dyslipidemia Code(s): E78.5 - HYPERLIPIDEMIA, UNSPECIFIED Status: Chronic (13) GERD (gastroesophageal reflux disease) Code(s): K21.9 - GASTRO-ESOPHAGEAL REFLUX DISEASE WITHOUT ESOPHAGITIS Status: Chronic Qualifiers: Esophagitis presence: esophagitis presence not specified Qualified Code(s) : K21.9 - Gastro-esophageal reflux disease without esophagitis (14) Hypertension Code(s): I10 - ESSENTIAL (PRIMARY) HYPERTENSION Status: Chronic Qualifiers: Hypertension type: essential hypertension Qualified Code(s): I10 - Essential (primary) hypertension (15) Physical deconditioning Code(s): R53.81 - OTHER MALAISE Status: Acute - Plan ekg shows flutter @ 130/min -: tx to tele, start cardizem drip, cardio consult -: gentle iv hydration -: will get ammonia levels, has become more altered this morning than yesterda -: is on dig, neomycin, rifaximin and diflucan * . Review of Systems - Medications/Allergies Allergies/Adverse Reactions: Allergies Allergy/AdvReac Type Severity Reaction Status Date / Time amoxicillin [Amoxicillin] Allergy Verified 11/21/16 22:58 codeine Allergy Verified 11/21/16 22:58 iodine Allergy Verified 11/21/16 22:58 Penicillins Allergy Verified 11/21/16 23:00 Sulfa (Sulfonamide Allergy Verified 11/21/16 22:58 Antibiotics) sulfamethoxazole Allergy Verified 11/21/16 22:58 [From Bactrim] trimethoprim [From Bactrim] Allergy Verified 11/21/16 22:58 Medications: Current Medications Acetaminophen (Tylenol) 650 mg PO Q4H PRN PRN Reason: Headache/Fever or Pain Al Hydroxide/Mg Hydroxide (Maalox) 30 ml PO Q6H PRN PRN Reason: Heartburn or Indigestion Albuterol/Ipratropium (Duoneb) 3 ml NEB [id number] [facility] Last Admin: 05/02/17 06:33 Dose: 3 ml Artificial Tears (Tears Naturale) 0 drop EA EYE PRN PRN PRN Reason: Dry Eyes Calcium Carbonate (Tums) 1,000 mg PO Q4H PRN PRN Reason: Heartburn or Indigestion Cyanocobalamin (Vitamin B-12) 1,000 mcg PO DAILY [facility] Last Admin: 05/02/17 10:05 Dose: Not Given Dextrose/Water (Dextrose 50%) 25 gm SLOW IVP PRN PRN PRN Reason: Hypoglycemia Digoxin (Lanoxin) 0.125 mg PO DAILY [facility] Last Admin: 05/02/17 10:05 Dose: Not Given Folic Acid (Folvite) 1 mg PO DAILY [facility] Last Admin: 05/02/17 10:06 Dose: Not Given Glucagon (Glucagon) 1 mg IM PRN PRN PRN Reason: Hypoglycemia Guaifenesin (Robitussin Sf) 200 mg PO Q4H PRN PRN Reason: Cough Guaifenesin (Mucinex) 600 mg PO Q12HR [facility] Last Admin: 05/02/17 10:06 Dose: Not Given Hydralazine HCl (Apresoline) 10 mg SLOW IVP Q4H PRN PRN Reason: Systolic BP > 180 Dextrose/Water (D5w) 1,000 mls @ 0 mls/hr IV .Q0M PRN; As Directed PRN Reason: Hypoglycemia Fluconazole/Sodium Chloride (100 mg/ Device) 50 mls @ 100 mls/hr IVPB DAILY [facility] Last Admin: 05/02/17 07:58 Dose: 50 mls Diltiazem HCl 125 mg/ Sodium (Chloride) 125 mls @ 5 mls/hr IVPB INF [facility]; 5 MG/ HR PRN Reason: Protocol Sodium Chloride (Normal Saline 0.9%) 1,000 mls @ 50 mls/hr IV .Q20H [facility] Insulin Human Lispro (Humalog) 0 units SC .AGGRESSIVE SLIDING PRN PRN Reason: Aggressive Correctional Scale Last Admin: 04/30/17 12:30 Dose: 9 unit Insulin Human Lispro (Humalog) 0 units SC .BEDTIME SLIDING SC PRN PRN Reason: Bedtime Correctional Scale Last Admin: 04/26/17 21:20 Dose: 3 unit Mineral Oil/White Petrolatum (Eucerin Cream) 0 gm TOP BIDPRN PRN PRN Reason: Dry Skin Neomycin Sulfate (Neomycin Sulfate) 500 mg PO Q12HR [facility] Last Admin: 05/02/17 10:06 Dose: Not Given Ondansetron HCl (Zofran Odt) 4 mg PO Q6H PRN PRN Reason: Nausea/Vomiting Ondansetron HCl (Zofran) 4 mg IVP Q6H PRN PRN Reason: Nausea/Vomiting Pantoprazole Sodium (Protonix) 40 mg PO DAILY [facility] Last Admin: 05/02/17 10:06 Dose: Not Given Phenol (Chloraseptic [place] 180 Ml Bot) 0 ml PO PRN PRN PRN Reason: Sore Throat Rifaximin (Xifaxan) 550 mg PO BID [facility] Last Admin: 05/02/17 10:06 Dose: Not Given Sodium Chloride ([place] Nasal [place] 0.65%) 0 ml EA NARE QIDPRN PRN PRN Reason: Nasal Congestion Sodium Chloride (Flush - Normal Saline) 10 ml IVF Q12HR [facility] Last Admin: 05/02/17 10:07 Dose: Not Given Sodium Chloride (Flush - Normal Saline) 10 ml IVF PRN PRN PRN Reason: Saline Flush Tamsulosin HCl (Flomax) 0.4 mg PO DAILY [facility] Last Admin: 05/02/17 10:07 Dose: Not Given
[2017-05-02 12:48] LABS: PTT 27.2 SEC (22.9-36.1)
[2017-05-02 13:03] LABS: ALT (SGPT) 39 U/L (8-55); AST (SGOT) 41 U/L (5-34); Alkaline Phosphatase 141 U/L (40-150); Bilirubin, Direct 3.9 mg/dL (0.1-0.3); Bilirubin, Total 6.6 mg/dL (0.2-1.2); Digoxin 0.76 ng/mL (0.8-2.0); Protein, Total 5.4 g/dL (5.8-8.1)
[2017-05-02] MEDS: Sodium Chloride 0.9% 1,000 ML IV SCH (13:10)
[2017-05-02 14:15] LABS: Mean Platelet Volume 9.1 fL (7.4-10.4); Red Blood Cell (RBC) Count 4.28 mill/uL (4.70-6.10)
[2017-05-02 14:16] LABS: Anisocytosis SLIGHT = 6-15 cells (100X) (0-5/hpf); Band 1 % (5-11); Neutrophil 95 % (42-75)
--- NOTE | 2017-05-02 17:32 | CON ---
DATE OF CONSULTATION: 05/02/2017 REASON FOR CONSULTATION: Tachycardia. HISTORY OF PRESENT ILLNESS: Amos Quesada is an 81-year-old gentleman who came to the hospital was b rought here after falling. He had a hip fracture, which apparently will be treated conservatively. While he was here, it was noted that he had rapid heart rate and was transferred down to the [facility] area. It looks like there is some atrial fibrillation with a rapid rate, which is most of the r apid rate in occasional, what looks like maybe atrial tachycardia. The patient did not report chest pain or pressure. PAST MEDICAL HISTORY: 1. Previous bypass surgery. 2. Cirrhosis. 3. Pancytopenia. MEDICATIONS: Prior to admission, he was taking, 1. Tamsulosin. 2. Nadolol at high dose. 3. Digoxin. 4. Amlodipine. ALLERGIES: AMOXICILLIN, CODEINE, IODINE, PENICILLIN, and SULFA. SOCIAL HISTORY: The patient lives in a half-way. Does not currently using tobacco. Apparently , just uses some alcohol occasionally. FAMILY HISTORY: Unknown. REVIEW OF SYSTEMS: The patient is sleepy now and unable to give a good review of systems. We are l ooking at the initial notes. It was noted, there was a 10-point review of systems, which was negati ve. Constitutional: No significant weight gain or loss. Vision: No changes. Hearing: No change s. Pulmonary: No cough or wheezing. Gastrointestinal: No nausea, vomiting, diarrhea. He has had some trouble swallowing here. Musculoskeletal: No unusual joint pain or swelling. PHYSICAL EXAMINATION: GENERAL: It is a chronically ill-appearing elderly gentleman in no distress. VITAL SIGNS: Blood pressure 125/77, pulse 140, it is irregular. HEENT: Sclerae nonicteric. Mouth mucous membranes moist. NECK: Supple, no lymphadenopathy. LUNGS: Clear. No wheezing, rales, or rhonchi. CARDIAC: Irregularly irregular. No murmur, rub, or gallop. ABDOMEN: Soft, nontender. No hepatosplenomegaly. EXTREMITIES: Warm and dry. No clubbing, cyanosis, or edema. LABORATORY AND X-RAY FINDINGS: EKG reveals intermittent atrial fibrillation with a rapid rate. Occ asional atrial tachycardia. He has occasional paced rhythm. ASSESSMENT: 1. Hip fracture. 2. Generalized debility. 3. History of pancytopenia. 4. Frequent falling. 5. History of cirrhosis. 6. Coronary artery disease with previous bypass. 7. Previous pacemaker. PLAN: 1. Add oral diltiazem. 2. May need to resume beta tristen. 3. We will have pacemaker integrity. 4. Echocardiogram to be done. We will follow with you. It looks like a poor candidate for anticoa gulation with frequent falling, cirrhosis, and generalized debility.
[2017-05-02] MEDS: HumaLOG 300 UNITS/3 ML VIAL SC PRN ×2 (18:12→23:32)
--- NOTE | 2017-05-02 21:27 | RAD ---
RADIOGRAPH OF CHEST SINGLE VIEW 05/02/17 COMPARISON: 04/28/17 CLINICAL HISTORY: Infiltrate. FINDINGS: There is elevation of the right hemidiaphragm with underlying air filled bowel again seen. Right bas ilar atelectasis remains. Slight blunting of right lateral costophrenic sulcus as well as minimal bl unting at the left costophrenic sulcus again seen. There is prominence of the cardiac silhouette and pulmonary vasculature. Chest is otherwise similar appearing. IMPRESSION: 1. Stable chest. 2. Findings of CHF are present. POS: [facility]
--- NOTE | 2017-05-02 21:33 | PRG ---
DATE OF SERVICE: 05/02/2017 SUBJECTIVE: The patient was seen and examined at bedside and was confused and was somnolent and not responding. PHYSICAL EXAMINATION: GENERAL: This is an elderly male who is confused. VITAL SIGNS: Temperature 97, pulse 137, respiratory rate , blood pressure 129/79. HEENT: Atraumatic, normocephalic. Oral mucosa is moist. NECK: Supple, no masses. CARDIOVASCULAR: S1, S2 heard. RESPIRATORY: Clear. GASTROINTESTINAL: Abdomen is soft. MUSCULOSKELETAL: No tenderness. DERMATOLOGIC: No skin rash. NEUROLOGIC: Confused. LABORATORY DATA: Sodium is 132, potassium is 5.4, BUN 32, creatinine 0.8. ASSESSMENT AND PLAN: 1. Hyponatremia, getting better with IV fluids. 2. Hypochloremia. 3. Acute kidney injury, stable. 4. Edema. 5. Hypertension. 6. Continue intravenous fluids as tolerated.
[2017-05-02] MEDS ORDERED: Merrem (PEDI) 500 MG in Syringe 0 ML IVPB SCH (22:00)
[2017-05-02] MEDS: Metoprolol Tartrate 25 MG TAB PO SCH (22:22)
[2017-05-02] MEDS: Meropenem 500 MG, Admixture Fee 1 EACH in Sterile Water 10 ML SLOW IVP SCH (22:23)
[2017-05-03] MEDS: Meropenem 500 MG, Admixture Fee 1 EACH in Sterile Water 10 ML SLOW IVP SCH ×3 (05:57→22:13)
[2017-05-03] MEDS: Sodium Chloride 0.9% 1,000 ML IV SCH ×3 (05:57→21:20)
[2017-05-03 06:10] LABS: #Neutrophils 15.6 thou/uL (1.40-6.50); %Basophils 0.1 % (0.0-1.0); %Eosinophils 0.1 % (0.0-10.0); %Lymphocytes 5.5 % (21.0-51.0); %Monocytes 5.5 % (0.0-10.0); Hematocrit 40.8 % (42.0-52.0); Mean Platelet Volume 8.4 fL (7.4-10.4); Red Blood Cell (RBC) Count 3.76 mill/uL (4.70-6.10); White Blood Cell (WBC) Count 17.6 thou/uL (4.8-10.8)
[2017-05-03 06:25] LABS: Digoxin 0.75 ng/mL (0.8-2.0)
[2017-05-03 06:30] LABS: Anion Gap 16 mmol/L (10-20); BUN (Urea Nitrogen) 43 mg/dL (8.4-25.7); Calc. Creatinine Clearance 50 mL/min (70-130); Calcium 7.7 mg/dL (7.8-10.44); Carbon Dioxide 23 mmol/L (23-31); Chloride 101 mmol/L (98-107); Estimated GFR-MDRD 57
[2017-05-03] MEDS: Folic Acid 1 MG TAB PO SCH (08:41)
[2017-05-03] MEDS: Rifaximin 550 MG TAB PO SCH (08:41)
[2017-05-03] MEDS: Metoprolol Tartrate 25 MG TAB PO SCH ×2 (08:41→21:15)
[2017-05-03] MEDS: Cyanocobalamin (Vitamin B-12) 1,000 MCG TAB PO SCH (08:41)
[2017-05-03] MEDS: Neomycin 500 mg Tablet PO SCH ×2 (08:41→21:15)
[2017-05-03] MEDS: Digoxin 0.125 MG TAB PO SCH (08:41)
[2017-05-03] MEDS: Tamsulosin HCl 0.4 MG CAP PO SCH (08:41)
[2017-05-03] MEDS: Fluconazole In NaCl,Iso-Osm 100 MG in Premix Bag 1 BAG IVPB SCH ×2 (08:42)
--- NOTE | 2017-05-03 09:11 | PRG ---
DATE OF SERVICE: 05/03/2017 Mr. Quesada is confused, but cooperative, no chest pain or pressure. PHYSICAL EXAMINATION: VITAL SIGNS: Blood pressure 122/58, pulse is in the 70-80 range, it is mostly paced. LUNGS: Clear. CARDIAC: Normal S1, normal S2. ASSESSMENT: 1. Atrial fibrillation, rate controlled. 2. Status post humerus fracture. PLAN: 1. Continue metoprolol. 2. Low dose diltiazem. 3. Low dose digoxin. 4. Okay to transfer off the bus driver/monitor from my standpoint. 5. We will also check a pacemaker function.
[2017-05-03] MEDS: guaiFENesin ER 600 MG TAB PO SCH ×2 (09:26→21:15)
--- NOTE | 2017-05-03 11:57 | RAD ---
SINGLE VIEW OF THE CHEST: COMPARISON: 05/02/17. HISTORY: Delirium and cough. FINDINGS: A single view of the chest shows a normal-size cardiomediastinal silhouette. The pacemaker is uncha nged in position. The patient is status post sternotomy. There is elevation of the right hemidiaph ragm. There is opacity in both lung bases which may represent atelectasis or infiltrates. IMPRESSION: Bibasilar atelectasis versus infiltrate. POS: [facility]
--- NOTE | 2017-05-03 12:00 | RAD ---
AP PELVIS RADIOGRAPH: DATE: 05/03/17. HISTORY: Acetabular fracture. COMPARISON: 04/26/17. FINDINGS: Again noted is the slight irregularity involving the iliopectineal line, but the transverse fracture lucency involving the left acetabulum is less perceptible which may be related to either interval h ealing or projection. Fracture involving the left inferior pubic ramus is also again present. No a dditional fracture or dislocation is seen. There has been no other interval change compared to the prior study. IMPRESSION: Nondisplaced fractures involving the left acetabulum and left inferior pubic ramus. Fracture lucenc y involving the left acetabulum is less perceptible but does persist. POS: [facility]
[2017-05-03] MEDS: HumaLOG 300 UNITS/3 ML VIAL SC PRN (12:43)
--- NOTE | 2017-05-03 13:47 | CON ---
DATE OF CONSULTATION: 05/03/2017 This is in reference to delirium and leukocytosis. HISTORY OF PRESENT ILLNESS: An 81-year-old with a history of cardiomyopathy, steatohepatitis with l iver cirrhosis and portal hypertension, BPH, and COPD as well as type 2 diabetes mellitus who was ad mitted after sustaining a fall or multiple falls and injuring his pelvis with pubic bone fracture. He was brought and evaluated and found to have hyponatremia, increase in creatinine, leukocytosis wi th bandemia. Reportedly, there was a plan for transfer him to rehab, but they wanted for medical ev aluation first. Initial findings included blood pressure 98/71, pulse 80, respirations 12, temperat ure 97.3, O2 sat 97%. He was described as alert and awake, although lethargic and he was going to s leep frequently during the examination. Physical exam findings with coarse breath sounds. Abdomen was described as soft without any tenderness. The extremity examination with no significant finding s. No asterixis was noted initially. The initial laboratory findings include white cell count 17.4 , hemoglobin 13.7, platelets 42,000 with 88% neutrophils and initial sodium of 126, creatinine 1.37, glucose 339, bilirubin 5.4, AST 161, ALT 84 and alkaline phosphatase 162, albumin 2.8. The initia l impression was frequent falls with hyponatremia and acute renal insufficiency, hyperglycemia, band emia and COPD. Reportedly, had been given a course of corticosteroids recently as well as antimicro bial therapy. This was before admission to the hospital. Inhalers were continued. Corgard and rif aximin were continued as well as lactulose. During the next few days, he developed atrial fibrillat ion, orthopedic surgery consultation was completed and the surgeon recommended conservative manageme nt. Because of worsening delirium, neurology consultation obtained and diagnosis of toxic metabolic encephalopathy was given. Nephrology evaluated the patient and managed hyponatremia and hypochlore vida with IV fluids. The renal function has improved with creatinine down to 0.8. A C. diff test do ne on admission was negative. Currently, Mr. Quesada is obtunded. He will open his eyes very brief ly, but does not remain awake. I am unable to understand his speech and he cannot follow commands. According to the nurse, he has had no bowel movements. No seizure activity noticeable. PAST MEDICAL HISTORY: Cardiomyopathy with diastolic CHF, cirrhosis of liver secondary to steatohepa titis, portal hypertension, BPH, COPD, type 2 diabetes, dyslipidemia, hypertension, atrial fibrillat ion. PAST SURGICAL HISTORY: Bypass graft surgery, pacemaker placement, multiple endoscopies. SOCIAL HISTORY: Drinks occasionally. Apparently, he quit drinking several years before. Former sm cortney. FAMILY HISTORY: Ovarian cancer. ALLERGIES: AMOXICILLIN, CODEINE, IODINE, PENICILLIN, SULFA DRUGS. CURRENT MEDICATION LIST: Tylenol, Maalox, Artificial Tears, Lanoxin, fluconazole, Folvite, Robituss in, insulin, meropenem, which has been started. Today, I believe rifaximin. PHYSICAL EXAMINATION: VITAL SIGNS: T-max 98.4, blood pressure 107/56, pulse 68, respirations 20-22, O2 sat 93%- 97% on 2 liters nasal cannula. GENERAL: The patient has multiple areas of bruising in the upper and lower extremities. No Díaz c atheter. No lymphadenopathy. HEENT: Ocular movements are somewhat disconjugate. Scleral are a bit icteric. Pupils are 1 mm and reactive. Oral cavity not remarkable. NECK: It is difficult to evaluate, because of patient's resistance to motion. LUNGS: With a few inspiratory crackles in right base. HEART: S1, S2 with irregular rate. No obvious murmurs. ABDOMEN: Distended, tympanitic. Question of tenderness in the left side. No evidence of ascites. Question of bladder distention. Patient does not have Díaz catheter. SKIN: There are areas of bruising in the pubic area of the skin. EXTREMITIES: No joint inflammatory activity noted. Pulses are 1+ in dorsalis pedis. There is evid ence of asterixis in upper extremities. He moves all extremities equally. He is obtunded. LABORATORY DATA: The WBC count in the urine was 4-6. The latest white cell count 17.6, hemoglobin 12.9, platelets 80,000. INR 1.7. Sodium 135, creatinine 1.22. Microbiology data with yeast in sto ol, which probably colonizer. Urine culture yeast as well, probably colonizer. Three sets of blood cultures thus far negative. X-RAY FINDINGS: Chest x-ray with distention of colon with upward movement of diaphragm and decrease in lung excursion; atelectasis versus pneumonia, right lower lobe. ASSESSMENT AND PLAN: 1. Coronary artery disease, ischemic cardiomyopathy. 2. Pacemaker. 3. Steatohepatitis with cirrhosis of liver. 4. Recurrent falls. 5. Delirium, which was present on admission secondary to toxic metabolic encephalopathy. 6. Neutrophilia with a left shift. 7. Dilated loops of bowel, abdominal distention and possible abdominal tenderness. DISCUSSION: The differential diagnosis includes toxic metabolic encephalopathy secondary to an infe ctious process or inflammatory process in intraabdominal area or lungs of both. Peritonitis is less likely since there is no ascites noticeable, but we will see what the CT scan shows. No evidence o f bacteremia at this time. Continue meropenem. I will discontinue rifaximin. CT scan of the abdom en and pelvis with oral and IV contrast, CT of chest.
--- NOTE | 2017-05-03 15:38 | PRG ---
DATE OF SERVICE: 05/03/2017 SUBJECTIVE: The patient is seen and examined at the bedside. There is no any good communication wi th him, although he is still able to answer very simple questions, like the name. OBJECTIVE: VITAL SIGNS: Blood pressure is 107/56, temperature is 97.8, pulse is 68, respiratory rate 22, O2 sa turations 97% on 2 liters by nasal cannula. GENERAL: He is in delirium during my visit. HEENT: His head is atraumatic, normocephalic. Eyes: Pupils are responding to light properly. Scl erae is nonicteric. Conjunctiva is pinkish. NECK: Thyroid is not palpable. Neck is not stiff. LUNGS: Breath sounds somewhat diminished at both bases. No rales, wheezing or crackles. CARDIOVASCULAR: S1, S2 normal, no S3, no S4. ABDOMEN: Somewhat distended. Bowel sounds are present. No organomegaly. EXTREMITIES: 1+ peripheral edema similar bilaterally. NEUROLOGIC: He is alert and oriented x0. He is able to move his all 4 extremities. He has asterix is. He tries to follow my simple commands. SKIN: Multiple ecchymotic lesions on his upper extremities. LABORATORY DATA: Showed white count of 17.6, hemoglobin of 12.9, hematocrit 40.8, and platelet coun t is 80,000 and 88% neutrophils. Chemistry: Sodium is 135, potassium 4.6, chloride 101, CO2 23, BU N 43, creatinine 1.22, glucose 291, glycemia on Accu-Cheks ranging from 264-319 in the last 24 hours , calcium 7.7. Digoxin 0.75. Microbiology showed last blood cultures are negative. Urine culture, preliminary, less than 10,000 colonies of mixed skin parrish. The previous cultures, urine done on 1 06/27/2016 is positive for yeast species and stool done on 04/27/2017 is positive for yeast species. Also he had C. difficile antigen and toxin is negative done on 04/27/2017 and Campylobacter antigen and Shiga toxins were negative on 04/27/2017. Two blood cultures done on the 04/27/2017 came back negative. IMPRESSION: 1. Delirium with some mental function changes at the time of admission and that this is probably gr adually getting worse. At this point, we are looking for etiology. The patient was seen by Dr. Curt quintero since patient's white count is elevated at 17,000 with left shift. He recommends CT of the chest , abdomen, and pelvis with and without contrast to rule out infectious etiology. Also he recommends to continue meropenem. 2. Steatohepatitis with liver cirrhosis. 2. Recurrent falls. 3. Coronary artery disease and ischemic cardiomyopathy. 4. Pacemaker with underlying atrial fibrillation. Cardiology was consulted and Dr. Thacker saw the patient and recommended to add diltiazem and low dose of digoxin and continue metoprolol. The pacer is going to be interrogated. PLAN: To increase IV fluids to 225 mL to rehydrate him, so he can have CT scan done with IV contras t tomorrow morning. He is going to have prep done since he has some IODINE ALLERGY. We will obtain CT of the chest, abdomen, and pelvis to look for some infectious/inflammatory problems, which could cause this metabolic encephalopathy. Also I am going to stop his rifaximin and we will start him o n an long-acting insulin, Levemir at 20 units because his glycemia is changing from 249 to 319 and w ill continue as per Dr. Ashton' recommendation. Fluconazole will be discontinued and we will continu e meropenem 500 mg IV piggyback every 8 hours and we will discontinue rifaximin.
[2017-05-03 15:51] LABS: Oxyhemoglobin 92.7 % (94.0-97.0); Sodium 138 mmol/L (135-148)
[2017-05-03 15:52] LABS: Mode 2L NC; Modified Allen's Test NOT DONE; Vent NO
[2017-05-03] MEDS: Insulin Detemir 100 UNITS/ML 20 UNITS in Pre-Filled Syringe 1 EACH SC SCH (21:03)
[2017-05-03] MEDS: predniSONE 50 MG TAB PO SCH (21:15)
--- NOTE | 2017-05-03 22:39 | CON ---
DATE OF CONSULTATION: 05/03/2017 HISTORY OF PRESENT ILLNESS: Mr. Quesada is an 81-year-old male. He presented with altered mental s tatus and falls. He still has altered mental status. He has been transferred to the IMU. He has b een here for about a week. The neurologist saw him early on, felt that he had a metabolic encephalopathy. They recommend a lum bar puncture. He failed to improve. Neurology is not still following. He was seen by Infectious Disease today. We did not find any focal source of an infection based on history and physical. I was consulted because of his presence in the Critical Care Unit. It is unclear to me whether or not he is worse or better. Reviewing notes, it seems as though he is about the same neurologically. PAST MEDICAL HISTORY: Remarkable for: 1. Cryptogenic cirrhosis. He has been seen by Dr. Lopez and Dr. Pollard in the past. 2. He has a history of hepatic encephalopathy. His ammonia level has been normal multiple times. 3. He has a history of diastolic heart failure. 4. He has a history of portal hypertension with gastric and esophageal varices. 5. History of BPH. 6. Reported history of COPD. I do not find any old PFTs in the hospital records. 7. History of diabetes. 8. Lipid disorder. 9. Hypertension. 10. Pancytopenia, felt to be secondary to chronic liver disease. 11. History of atrial fibrillation. 12. History of deconditioning. 13. History of coronary artery bypass grafting in 1996 and a pacemaker placement. SOCIAL HISTORY: He does not drink. He is a former smoker. FAMILY HISTORY: Heart disease and cancer. REVIEW OF SYSTEMS: Not obtainable. PHYSICAL EXAMINATION: VITAL SIGNS: Afebrile, heart rate is 73, respiratory rate 22, oximetry is 99 on 2 liters, blood pre ssure is 111/45, earlier 91/64 at 1500 hours. HEENT: His pupils are reactive. His sclerae are anicteric. He mumbles. NECK: Not stiff. I can pull his chin down to his chest gently without much resistance. LUNGS: Clear. HEART: Regular rhythm. ABDOMEN: Soft. He has no guarding, no tenderness. LABORATORY AND X-RAY FINDINGS: White count 17.6, hemoglobin 12.9, platelets 80,000, MCV is 109. So dium 135, potassium 4.6, chloride 101, bicarbonate 23, BUN 43, creatinine 1.22. Sodium was 126 on a dmission; this is corrected gradually. Glucose is in the 200-300 range. IMPRESSION: Metabolic encephalopathy of unclear etiology. A lumbar puncture would not be unreasona ble in my opinion given his lack of improvement with correction of his electrolyte abnormalities and his empiric antimicrobial therapy. Blood gas just ordered by me shows a pH 7.43, pCO2 of 38, pO2 o f 65. He is adequately protecting his airway at this time. We will be happy to follow with the other phys icians caring for him.
--- NOTE | 2017-05-03 23:21 | PRG ---
DATE OF SERVICE: 05/03/2017 SUBJECTIVE: Patient was seen and examined at bedside and overnight events noted. The patient denie s any shortness of breath or chest pain or palpitation. No history of nausea or vomiting or diarrhe a or fever or chills or cramps. OBJECTIVE: GENERAL: This is an elderly male, who is slightly confused. VITAL SIGNS: Temperature 98.3, pulse 73, respiratory rate , blood pressure 126/54. HEENT: Atraumatic, normocephalic. Oral mucosa is moist. NECK: Supple. CARDIOVASCULAR: S1 and S2 heard. Rate and rhythm regular. RESPIRATORY: Clear to auscultation. GASTROINTESTINAL: Abdomen is soft. MUSCULOSKELETAL: No tenderness. No edema. DERMATOLOGIC: No skin rash. NEUROLOGIC: Confused. PSYCHIATRIC: Mood and affect normal. LABORATORY DATA: Potassium is 4.6, BUN is 43, creatinine is 1.2, sodium is 135. ASSESSMENT AND PLAN: 1. Hyponatremia. Sodium level is better. Continue on intravenous fluids. 2. Acute kidney injury, stable, okay to have contrast. Continue on intravenous fluids. 3. Edema, controlled. 4. Hypertension, stable. 5. Hyperglycemia. Okay to have contrast and we will follow. Continue on IV fluids at this point. Plan discussed with Dr. Reid.
[2017-05-04] MEDS: predniSONE 50 MG TAB PO SCH ×2 (02:28→03:05)
[2017-05-04 04:12] LABS: #Lymphocytes 0.5 thou/uL (1.20-3.40); #Monocytes 0.6 thou/uL (0.11-0.59); #Neutrophils 12.6 thou/uL (1.40-6.50); %Eosinophils 0.1 % (0.0-10.0); %Lymphocytes 3.8 % (21.0-51.0); %Monocytes 4.3 % (0.0-10.0); Hematocrit 37.1 % (42.0-52.0); Mean Platelet Volume 9.1 fL (7.4-10.4); Red Blood Cell (RBC) Count 3.42 mill/uL (4.70-6.10); White Blood Cell (WBC) Count 13.7 thou/uL (4.8-10.8)
[2017-05-04 04:15] LABS: Anion Gap 12 mmol/L (10-20); BUN (Urea Nitrogen) 47 mg/dL (8.4-25.7); Calc. Creatinine Clearance 51 mL/min (70-130); Calcium 7.8 mg/dL (7.8-10.44); Carbon Dioxide 23 mmol/L (23-31); Chloride 106 mmol/L (98-107); Estimated GFR-MDRD 58
[2017-05-04] MEDS: Meropenem 500 MG, Admixture Fee 1 EACH in Sterile Water 10 ML SLOW IVP SCH ×3 (06:01→23:33)
[2017-05-04 07:45] LABS: Sodium 139 mmol/L (135-148)
[2017-05-04 07:54] LABS: Mode NC; Vent NO
[2017-05-04] MEDS ORDERED: diphenhydrAMINE 50 MG CAP PO SCH (08:00)
--- NOTE | 2017-05-04 08:58 | PRG ---
DATE OF SERVICE: 05/04/2017 SUBJECTIVE: The patient is seen and examined at bedside. He is in B7. He is very sedated from Tyrell adryl he received for his preparation for CT this morning. His respiratory status is somewhat worse , although ABGs were done this morning showing normal pO2 and normal pCO2 and with normal pH. OBJECTIVE: VITAL SIGNS: Blood pressure is 134/53, pulse is 70, respiratory rate is 28, O2 saturation is 95, He is on 2 liters by nasal cannula. GENERAL: He is sedated from the medicine. He responds to my applied painful stimuli, but he falls a sleep very quickly. LUNGS: Bilateral rales present. No wheezing. HEART: S1, S2 normal, no S3, no S4. ABDOMEN: Soft. Bowel sounds are present. Abdomen is somewhat distended. No guarding. EXTREMITIES: 1+ peripheral edema. NEUROLOGIC: As mentioned above, he is sedated. The neurological examination is postponed. LABORATORY DATA: Showed a white count of 13.7, hemoglobin 11.9, hematocrit 37.1, platelet count is 48,000. Chemistry: Sodium was 137, potassium 4.1, chloride 106, CO2 of 23, BUN is 47, creatinine 1 .2, glycemia is ranging from 84-271. Procalcitonin is 1.15. Echocardiogram was done yesterday which showed ejection fraction of left ventricle 50-55% and probab ly diastolic dysfunction. There is a pacer wire visualized in the right ventricle. The left atrium is severely dilated. There is moderately enlarged right atrium size. There is severe mitral regur gitation present and severe tricuspid regurgitation. IMPRESSION: 1. Delirium, now with sedative effect of Benadryl which is used to prepare him for the CAT scan. W e are going to stop the next dose of Benadryl since he is so sedated now that he is difficult to ken use and we are going to postpone the CT of the abdomen, chest, and pelvis until he recovers from his sedation. 2. Respiratory distress. He has some labored breathing now, but his ABGs showing normal gases with normal pH. Dr. Garrett is on the case and he does not need any intubation at this point. We will obt ain chest x-ray and a BNP and we will stop IV fluids and to see whether he is fluid overloaded, whic h affects his respiratory status. 3. Hepatitis with liver cirrhosis. 4. Recurrent falls. 5. Coronary artery disease and ischemic cardiomyopathy with some diastolic dysfunction and a slight ly decreased left ventricular ejection fraction to 50-55% on last echocardiogram. 6. Pacemaker with underlying atrial fibrillation. Dr. Thacker he is on the case. He is getting dil tiazem and digoxin plus metoprolol. PLAN: Postpone the CT. We will stop IV fluids. We will get BNP stat and chest x-ray to see what i s the explanation of his labored breathing although his ABGs are normal. His glycemia seems to be d oing better with starting long-acting insulin.
--- NOTE | 2017-05-04 09:51 | RAD ---
AP VIEW OF THE CHEST: INDICATION: Shortness of breath. COMPARISON: Prior exam 05/03/17. FINDINGS: Elevation of the right hemidiaphragm with cardiomegaly and pulmonary vascular congestion persist. T here is worsening airspace opacity of the right lung and left perihilar region which are suspicious for edema. There are worsening bilateral pleural effusions. Dual-lead pacemaker and post-CABG grace ges are similar. IMPRESSION: 1. Worsening bilateral airspace opacities within the perihilar region may reflect worsened edema. Pneumonia is felt to be less likely. Worsening bilateral pleural effusions. 2. Persistent cardiomegaly. 3. Persistent elevation of the right hemidiaphragm. POS: [facility]
[2017-05-04] MEDS: Cyanocobalamin (Vitamin B-12) 1,000 MCG TAB PO SCH (10:45)
[2017-05-04] MEDS: Folic Acid 1 MG TAB PO SCH (10:45)
[2017-05-04] MEDS: Digoxin 0.125 MG TAB PO SCH (10:45)
[2017-05-04] MEDS: Neomycin 500 mg Tablet PO SCH ×2 (10:46→23:10)
[2017-05-04] MEDS: Metoprolol Tartrate 25 MG TAB PO SCH (10:46)
[2017-05-04] MEDS: Tamsulosin HCl 0.4 MG CAP PO SCH (10:46)
[2017-05-04] MEDS: guaiFENesin ER 600 MG TAB PO SCH ×2 (10:46→23:08)
--- NOTE | 2017-05-04 12:25 | PRG ---
DATE OF SERVICE: 05/04/2017 SUBJECTIVE: Mr. Quesada remains obtunded. He wound not open his eyes to command or sternal rub. He does move spontaneously all his extremities to sternal rub. OBJECTIVE: VITAL SIGNS: His heart rate is 70, respiratory rate is 28, oximetry is 95% and blood pressure 134/53. LUNGS: Remarkable for mild rhonchi bilaterally. He is using accessory muscles. HEART: Regular rhythm. ABDOMEN: Soft. EXTREMITIES: Without asymmetry. LABORATORY DATA: White count 13.7, hemoglobin 11.9 and platelets 48,000. Sodium 137, potassium 4.1, chloride 106, bicarbonate 23, BUN 47 and creatinine 1.2. PH 7.44, pCO2 of 39 and pO2 87. IMAGING DATA: Chest radiograph shows a right lung alveolar infiltrate. IMPRESSION: 1. Pneumonia, most likely aspiration mediated and may have a component of noncardiogenic pulmonary edema as well. Cirrhosis with coagulopathy. 2. Extreme deconditioning. 3. Paralyzed right hemidiaphragm. 4. History of coronary artery bypass grafting. 5. Atrial fibrillation. 6. AMOXICILLIN, CODEINE, IODINE, PENICILLIN and SULFA allergies. PLAN: Broad antimicrobial coverage is indicated here. I think CT imaging changes our plan of care. I talked to the daughter by phone. She does not want her father placed on life support or cardioverted should he develop a malignant heart rhythm. We will continue as I have explained to her with aggressive care short of intubation or any type of aggressive life support. Even if he survives this admission, his prognosis for any type of functional recovery is extremely poor. His daughter tells me she understands this. She will try to get here, but I believe she is 6-7 hours away. There are two boys that are in [place] in [place] and she is trying to contact them now to get them to come see him. I do not think his demise is imminent. He is certainly handling his secretions at this point, but his encephalopathy combined with his pneumonia and mild pulmonary edema make his chances for survival small. Critical care time 35 min. [facility]
[2017-05-04] MEDS ORDERED: Diltiazem 125 MG in Sodium Chloride 0.9% 100 ML IVPB SCH (14:15)
[2017-05-04] MEDS ORDERED: Digoxin 0.5 MG/2 ML AMP SLOW IVP SCH (14:15)
--- NOTE | 2017-05-04 15:54 | PRG ---
DATE OF SERVICE: 05/04/2017 SUBJECTIVE: Mr. Quesada is unresponsive today. Apparently, he received some Benadryl last night, g ot very sleepy. He is unresponsive currently. REVIEW OF SYSTEMS: Not available. OBJECTIVE: VITAL SIGNS: Blood pressure 134/63, pulse 80, it is atrial fibrillation on the monitor. LUNGS: Some rhonchi. CARDIAC: Irregular, irregular. ABDOMEN: Soft and nontender. ASSESSMENT: 1. Atrial fibrillation, chronic, rate controlled. 2. Obtunded, possibly related to combination of medication as well as underlying medical problems. PLAN: 1. Benadryl has been stopped. 2. Change to oral medicines. 3. He has been made do not resuscitate status. Prognosis looks very poor. He is thought to also h ave aspiration-related pneumonia.
[2017-05-04] MEDS: Sodium Chloride 0.9% 1,000 ML IV SCH (16:40)
--- NOTE | 2017-05-04 19:51 | PRG ---
DATE OF SERVICE: 05/04/2017 SUBJECTIVE: Patient was seen and examined at bedside. He remains confused, not verbal. OBJECTIVE: GENERAL: This is an elderly male who is confused. VITAL SIGNS: Temperature 92, pulse 70, respiratory rate 18 and blood pressure 134/63. HEENT: Atraumatic and normocephalic. Oral mucosa is moist. NECK: Supple. CARDIOVASCULAR: S1 and S2 heard. Rate and rhythm regular. RESPIRATORY: Clear to auscultation. GASTROINTESTINAL: Abdomen is soft. MUSCULOSKELETAL: No tenderness. No edema. DERMATOLOGIC: No skin rash. NEUROLOGIC: Confused. PSYCHIATRIC: Mood and affect normal. LABORATORY DATA: Sodium is 137 and creatinine is 1.2. ASSESSMENT AND PLAN: 1. Hyponatremia. Sodium level is better with IV fluids. 2. Acute kidney injury. 3. Edema, controlled. 4. Hypertension. 5. Altered mentation. 6. Hyperglycemia. 7. Continue IV fluids as tolerated.
[2017-05-04] MEDS ORDERED: Dextrose 5% in Water 1,000 ML IV SCH (20:00)
[2017-05-04] MEDS ORDERED: Metoprolol Tartrate 5 MG/5 ML VIAL IVP SCH (21:00)
[2017-05-04] MEDS: Insulin Detemir 100 UNITS/ML 20 UNITS in Pre-Filled Syringe 1 EACH SC SCH (23:10)
[2017-05-05 04:49] LABS: ALT (SGPT) 30 U/L (8-55); AST (SGOT) 31 U/L (5-34); Alkaline Phosphatase 133 U/L (40-150); Anion Gap 17 mmol/L (10-20); BUN (Urea Nitrogen) 53 mg/dL (8.4-25.7); Bilirubin, Total 4.2 mg/dL (0.2-1.2); Calc. Creatinine Clearance 54 mL/min (70-130); Calcium 7.7 mg/dL (7.8-10.44); Carbon Dioxide 21 mmol/L (23-31); Chloride 107 mmol/L (98-107); Estimated GFR-MDRD 61; Globulin 2.7 g/dL (2.4-3.5)
[2017-05-05 05:03] LABS: Band 6 % (5-11); Hematocrit 43.6 % (42.0-52.0); Mean Platelet Volume 9.8 fL (7.4-10.4); Neutrophil 91 % (42-75); Red Blood Cell (RBC) Count 4.06 mill/uL (4.70-6.10); White Blood Cell (WBC) Count 13.9 thou/uL (4.8-10.8)
[2017-05-05] MEDS: Meropenem 500 MG, Admixture Fee 1 EACH in Sterile Water 10 ML SLOW IVP SCH ×2 (06:35→15:38)
[2017-05-05] MEDS ORDERED: Diltiazem 125 MG in Sodium Chloride 0.9% 100 ML IVPB SCH (06:47)
--- NOTE | 2017-05-05 07:05 | PRG ---
DATE OF SERVICE: 05/05/2017 SUBJECTIVE: Mr. Quesada is lucid in and out. No chest pain or pressure that he reports, but he is only moderately responsive now. OBJECTIVE: VITAL SIGNS: Blood pressure 115/54; pulse 70-80, it is irregular. LUNGS: Clear of wheezing, but he has diffuse rhonchi. CARDIAC: Irregularly irregular. ASSESSMENT: 1. Atrial fibrillation, chronic, rate controlled. 2. Altered mental status. 3. Generalized debility. PLAN: 1. He is on intravenous digoxin. 2. Intravenous diltiazem. 3. Continue supportive care for now. No other changes at this time. PROGNOSIS: Poor. CODE STATUS: DO NOT RESUSCITATE.
[2017-05-05] MEDS ORDERED: Pantoprazole 40 MG VIAL IVP SCH (09:00)
[2017-05-05] MEDS ORDERED: Digoxin 0.5 MG/2 ML AMP SLOW IVP SCH (09:00)
[2017-05-05] MEDS: Folic Acid 1 MG TAB PO SCH (09:13)
[2017-05-05] MEDS: guaiFENesin ER 600 MG TAB PO SCH ×2 (09:13→21:20)
[2017-05-05] MEDS: Cyanocobalamin (Vitamin B-12) 1,000 MCG TAB PO SCH (09:13)
[2017-05-05] MEDS: Neomycin 500 mg Tablet PO SCH ×2 (09:13→21:20)
--- NOTE | 2017-05-05 15:03 | PRG ---
DATE OF SERVICE: 05/05/2017 SERVICE: Pulmonary Medicine. INTERVAL HISTORY: The patient is doing very poorly from a respiratory standpoint. His mentation is quite poor as well. His blood pressures are only marginal and his saturations are low. He cannot provide any additional elements of the history at this point. Otherwise, there were no significant overnight events. PHYSICAL EXAMINATION: VITAL SIGNS: Afebrile, pulse 94, blood pressure 126/73, O2 saturations 82% on 2 liters nasal cannul a. HEENT: Normocephalic, atraumatic. Sclerae are white, conjunctivae pink. Oral mucosa is dry. LUNGS: Good air entry. There is slightly prolonged expiratory phase with minimal wheezing. Rhonch i are extensive throughout bilateral lung li. There are also dependent crackles. HEART: Normal rate. Regular. ABDOMEN: Soft, nontender, nondistended. Bowel sounds are positive. MUSCULOSKELETAL: No cyanosis or clubbing. There is no pitting in the bilateral lower extremities. If anything, there is some skin tenting present. GENITOURINARY: No Díaz catheter. NEUROLOGIC: Grossly nonfocal. LABORATORY DATA: WBC is 13.9, hemoglobin 14.0, platelets 49,000. PH 7.44, pCO2 of 39, pO2 87 on 2 liters nasal cannula. Creatinine 1.15. Basic metabolic profile and liver function studies are othe rwise unremarkable. Of note, his bicarb is 21 and BUN is 53. Urinalysis is unremarkable. Digoxin level is 0.75. Stool culture growing some yeast species. Urine cultures also growing yeast species . C. diff antigen and toxin is negative. Stool cultures are otherwise unremarkable. Blood culture s x4 and urine culture are negative to date. IMAGIN. Chest x-ray demonstrates elevated right hemidiaphragm. There is cardiomegaly present. Bilatera l air space opacifications within the perihilar region suggestive of possible edema. Pneumonia is a lso a distinct possibility. The entire colon is significantly distended throughout. 2. His echocardiogram demonstrates a 50-55% ejection fraction with likely diastolic dysfunction. T here is a moderately enlarged right atrium. Left atrium is severely dilated. ASSESSMENT: 1. Acute hypoxic respiratory failure. 2. Healthcare-associated pneumonia. 3. Paralyzed right hemidiaphragm. 4. Atrial fibrillation, currently rate controlled. 5. Metabolic encephalopathy. 6. Deconditioning, advanced. PLAN: We will continue antibiotics as well as oxygen. Hopefully, the patient will rally. That marylu frost said, I am doubtful this will occur. He has horrendous metabolic encephalopathy which is prevent ing him from taking any p.o. He also has fairly severe deconditioning. That being said, supportive care will be continued. Palliative care consult is going to be placed. The likelihood that he is going to make a recovery without advanced interventions like endotracheal tube is essentially nonexi stent. I have reaffirmed that the patient is in fact a DNI/DNR with the patient's son.
--- NOTE | 2017-05-05 16:51 | PRG ---
DATE OF SERVICE: 05/05/2017 SUBJECTIVE: The patient was seen and examined at bedside. The patient's son was at the bedside and the patient is nonverbal and not responding and is having some tachypnea. OBJECTIVE: GENERAL: This is an elderly male in moderate distress. VITAL SIGNS: Temperature 97.9, pulse 94, respiratory 12, blood pressure 126/56. HEENT: Atraumatic, normocephalic. Oral mucosa is moist. NECK: Supple, no masses. CARDIOVASCULAR: S1, S2. Rate and rhythm regular. RESPIRATORY: Clear. GASTROINTESTINAL: Abdomen is soft. MUSCULOSKELETAL: 1+ edema. DERMATOLOGIC: No skin rash. NEUROLOGIC: Confused. LABORATORY DATA: Sodium is 140, potassium is 5.0, BUN 53, creatinine is 1.1. ASSESSMENT AND PLAN: 1. Hyponatremia, much better with IV hydration. Sodium level is stable. 2. Acute kidney injury, stable. 3. Edema. 4. Hypertension. 5. Altered mentation. Overall, renal function is stable. Sodium level is better. We will sign off and overall prognosis remains poor. Family meeting today.
--- NOTE | 2017-05-05 17:15 | PRG ---
DATE OF SERVICE: 05/05/2017 SUBJECTIVE: The patient is seen and examined at the bedside. There are 2 daughters in the room pre sent and they are informed about either father's condition or there were not any new unexpected over night events. He is still basically the same. He is not able to wake up and communicate with us. OBJECTIVE: VITAL SIGNS: Blood pressure is 116/69, pulse is 97, respiratory rate is 20, O2 saturation 87% on 2 liters, and temperature is 98.4. HEENT: His sclerae are nonicteric. Pupils are responding to light properly. Conjunctiva perish. Oral mucosa is moist. He has labored breathing with a lot of secretions in his upper airways. LUNGS: Bilateral rales present. No wheezing. HEART: S1 and S2 normal. ABDOMEN: Soft, nontender, and nondistended. Bowel sounds are present. EXTREMITIES: 1+ peripheral edema is noted bilaterally. NEUROLOGIC: He is in a very lethargic state at this time. He did not wake up yet. He is not able to have any conversation with me today. LABORATORY DATA: Showed white count of 13.9, hemoglobin 14.7, hematocrit 43.6, and platelet count i s 49. Sodium 140, potassium 5.0, chloride 107, CO2 21, BUN 53, creatinine 1.15, , calcium 7.7, serum protein 5.0, albumin 2.3. IMPRESSION AND PLAN: We had a long discussion with the family and with him doctors who consulted an d we all agree that he is a DNR patient and needs palliative care and this is arranged and we are wa iting for the palliative care. Based on chest x-ray done yesterday, he has most likely right lung p neumonia. At this point, we are treating him with DuoNebs p.r.n. and antibiotic and O2 and he is ex tremely deconditioned with underlying cryptogenic liver cirrhosis, which makes his potential for rec overy small with multiorgan failure which appears very difficult to treat. For now, we will continu e current regimen.
[2017-05-05] MEDS ORDERED: Morphine PF 1 MG/ML SYR IVP PRN (18:52)
[2017-05-05] MEDS ORDERED: Morphine PF 1 MG/ML SYR IVP SCH (19:00)
[2017-05-05] MEDS: Insulin Detemir 100 UNITS/ML 20 UNITS in Pre-Filled Syringe 1 EACH SC SCH (21:20)
[2017-05-05 21:30] VITALS: BP 62/23
[2017-05-05 22:14] VITALS: TEMP 97.1
--- NOTE | 2017-05-06 21:58 | DIS ---
SUMMARY DATE OF ADMISSION: 04/26/2017 DATE OF EXPIRATION: 05/06/2017 CONSULTANTS: Dr. Jesse Coppola, Orthopedic Surgery; Dr. Diego Varghese, Gastrointestinal Service; Dr. Rosanna Calle, Nephrology Service; Dr. Naila Huertas, Neurology; Dr. Richard Thacker, Cardiology Servic e; Dr. Malcolm Ashton, Infectious Disease Service; Dr. Donnie Garrett, Pulmonary Service; Dr. Moose mansfield, Pulmonary Service/Critical Care. ADMISSION DIAGNOSES: 1. Frequent falls. 2. Hyponatremia, likely related with underlying cirrhosis of liver, suspect some volume depletion. 3. Acute kidney failure. 4. Abnormal liver function tests related with underlying known alcoholic cirrhosis of liver. 5. Hyperglycemia. 6. Bandemia. 7. Microcytosis. 8. Chronic diastolic heart failure. 9. Chronic obstructive pulmonary disease. 10. 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 11. Benign enlargement of prostate. 12. Gastroesophageal reflux disease. 13. Paroxysmal atrial fibrillation. 14. Coronary artery disease with history of coronary artery bypass graft. 15. Hypertension. PRIMARY CARE PHYSICIAN: Lidya Nicholson MD DIAGNOSES: 1. Acute hypoxic respiratory failure. 2. Healthcare associated pneumonia. 3. Paralyzed, right hemidiaphragm. 4. Atrial fibrillation, rate controlled. 5. Metabolic encephalopathy. 6. Advanced deconditioning. 7. Delirium. 8. Hypertension. 9. Acute kidney injury. 10. Hyponatremia. 11. Frequent falls. 12. Nonalcoholic cirrhosis of liver. 13. Diabetes mellitus type 2. 14. Chronic diastolic heart failure. 15. Chronic obstructive pulmonary disease. 16. Benign enlargement of prostate. 17. Gastroesophageal reflux disease. 18. Pacemaker. HOSPITAL COURSE: The patient is an 81-year-old male who was admitted to the hospital zandra use of frequent falls and fracture of left acetabulum and pubic bone fracture. He had extensive pas t medical history, multiple medical problems. Apparently, he had several falls prior to this hospit alization. Apparently, he did not lose any consciousness. He denied any nausea or vomiting. He de nied any fever or chills. He denied any UTI symptoms. He denied any abdominal pain. Apparently, nunu garber had some congestion in his chest and that is why he was taking some antibiotics. At the time of E R evaluation, he was found to have acetabulum fracture and pubic bone fracture. Also, he had a whit e count elevated at 17.4, hemoglobin 13.7, platelet count was 42, bands 8%. Sodium was 126, potassi um 4.6, chloride 92, CO2 of 25, BUN 53, creatinine 1.53, and glucose 339. His bilirubin was up to 5 .4, AST was 161, ALT 84, alkaline phosphatase was 162, albumin 2.8. EKG showed pacemaker rhythm. T he patient had a hip x-ray done at the time of admission, which showed suspicious findings for left acetabular and inferior pubic rami fracture. Next image was chest x-ray which showed progressive vo lume loss in the right lower lobe with atelectatic changes. The patient was seen by Dr. Coppola for orthopedic consultation and he recommended conservative management of his fractures. The patient w as admitted to the hospital for further management of his problems. He was somewhat lethargic at th e time of admission. His blood pressure was 98/71, pulse was 80, respiratory rate was 12, temperatu re was 97.3, saturation was 97% on room air. His weight was 69.8 kg. The patient was started on no rmal saline at 70 mL per hour. He was given 1 liter of fluids to avoid fluid overload since he had some liver cirrhosis. His glycemia was managed with diabetic diet and insulin as per sliding scale per protocol. He continued on his glipizide 10 mg twice a day. His CBC showed some bandemia, I was not clear what was the source of that. Apparently, he was given steroids and antibiotic before thi s hospitalization. He was continued on DuoNebs every 6 hours and also on his rifaximin, lactulose, and Corgard. For his paroxysmal atrial fibrillation, he was continued on digoxin 125 mcg p.o. He w as FULL CODE at this time. He was followed closely. In the next few days, his mental condition did not improve much. He was kind of lethargic and had some delirium. He was seen by Dr. Varghese for GI evaluation. He did not feel that this encephalopathy was related to his liver disease at least in b ig part. His white count gradually improved. His sodium and chloride gradually improved. He was s een by Dr. Calle for nephrology evaluation. He felt that this was most likely volume depletion, h e was given fluids and his numbers improved significantly. His glycemia improved and it went down t o 100s and 70s, but his mental condition did not improve much. He had additional images done, CT of the brain was done and did not show any acute abnormalities. It showed only diffuse cortical atrop hy and chronic ischemic small vessel disease. Despite of all those efforts, he was still kind of le thargic and then incongruent. He was seen by neurologist for neurology consultation, who felt that this was metabolic encephalopathy and he recommended to work on correcting his metabolic problems, a lthough he felt that this was probably multifactorial with hyponatremia, acute kidney injury, and de conditioning as a result of toxic metabolic encephalopathy. The patient was continued on the regime n and despite of all those efforts, his condition was gradually getting worse. He was transferred t o the telemetry floor when he developed atrial flutter on the background on his EKG and he was seen by Dr. Thacker for cardiology consultation who recommended to add oral diltiazem and follow up on tel emetry bed. The patient was seen by ID, Dr. Ashton, who also felt that this was metabolic encephalop athy. He recommended to continue meropenem, which was started the day before and do the CT of the c hest, abdomen, and pelvis since the patient was allergic to IODINE and iodine was required for the t est, the patient was placed on a special protocol prior to the testing. He was on Benadryl and pred nisone, he became even more lethargic after using this preparation, so he was moved to IMCU/AMU, bed #7 for further management. He was seen by senior pastor, Dr. Garrett. At this point, he was able to maintain his airways and he was able to maintain normal air exchange with normal ABGs. Consult [facility] st x-ray the next day showed further elevation of the right diaphragm and infiltrate in the right jose elias ng. The patient was continued on meropenem, which was recommended per ID and because of his quick d ecline, a very comatose state, the CT of the chest, abdomen, and pelvis was canceled. The patient w as continued supportive care, but quickly declined. In the meantime, his echocardiogram was done wh ich showed ejection fraction of the left ventricle at 50% to 55% with probable diastolic dysfunction and severely dilated left atrium with moderate enlarged right atrium. The pacemaker/AICD leads wer e visualized in the right atrium cavity, also echocardiogram, noted severe mitral regurgitation and severe tricuspid regurgitation along with minor changes of other valves. The family was contacted a nd the patient's code status was changed to DNR after family made the decision about that. Subseque ntly his condition quickly deteriorated and the patient was pronounced at 2302 hours on 017 and the body was released to the home.
--- NOTE | 2017-05-09 21:50 | EKG ---
Test Reason : Blood Pressure : / mmHG Vent. Rate : 133 BPM Atrial Rate : 381 BPM P-R Int : 000 ms QRS Dur : 084 ms QT Int : 302 ms P-R-T Axes : 000 013 215 degrees QTc Int : 449 ms Atrial flutter with variable A-V block Abnormal ECG When compared with ECG of 26-APR-2017 13:15, Previous ECG has undetermined rhythm, needs review Confirmed by SANTOSH COATES ([id number]) on 05/09/2017 9:50:01 PM Referred By: MORENO Confirmed By:SANTOHS COATES
== END 2017-05-06 01:11 | disposition expired | DRG 682 ==
LOC: ERS 11:45 → 2NO 14:47 → T4-A 04-30 14:02 → 2NO 05-02 11:40 → IMCU/EMU 05-03 14:39
PROVIDERS: ADMIT Hospitalist; ATTEND Hospitalist
DX: N17.9 Acute kidney failure, unspecified (principal); S32.402A Unspecified fracture of left acetabulum, initial encounter for closed fracture; J96.01 Acute respiratory failure with hypoxia; J69.0 Pneumonitis due to inhalation of food and vomit; J18.9 Pneumonia, unspecified organism; G93.41 Metabolic encephalopathy; G92 Toxic encephalopathy; I50.33 Acute on chronic diastolic (congestive) heart failure; D61.818 Other pancytopenia; E87.1 Hypo-osmolality and hyponatremia; K76.6 Portal hypertension; I48.92 Unspecified atrial flutter; B37.49 Other urogenital candidiasis; S32.592A Other specified fracture of left pubis, initial encounter for closed fracture; I11.0 Hypertensive heart disease with heart failure; E11.65 Type 2 diabetes mellitus with hyperglycemia; I48.0 Paroxysmal atrial fibrillation; E87.8 Other disorders of electrolyte and fluid balance, not elsewhere classified; Z91.81 History of falling; K74.69 Other cirrhosis of liver; N40.0 Benign prostatic hyperplasia without lower urinary tract symptoms; J44.9 Chronic obstructive pulmonary disease, unspecified; E78.5 Hyperlipidemia, unspecified; K21.9 Gastro-esophageal reflux disease without esophagitis; Z95.1 Presence of aortocoronary bypass graft; Z95.0 Presence of cardiac pacemaker; Z87.891 Personal history of nicotine dependence; Z88.5 Allergy status to narcotic agent; Z88.0 Allergy status to penicillin; Z88.2 Allergy status to sulfonamides; Z88.1 Allergy status to other antibiotic agents; Z91.041 Radiographic dye allergy status; I95.1 Orthostatic hypotension; Z66 Do not resuscitate; Z51.5 Encounter for palliative care; Y95 Nosocomial condition; I08.1 Rheumatic disorders of both mitral and tricuspid valves; R41.0 Disorientation, unspecified; I25.5 Ischemic cardiomyopathy; I25.10 Atherosclerotic heart disease of native coronary artery without angina pectoris; K75.81 Nonalcoholic steatohepatitis (NASH); E86.1 Hypovolemia; R00.0 Tachycardia, unspecified; D69.6 Thrombocytopenia, unspecified; R53.81 Other malaise; E86.0 Dehydration; J98.6 Disorders of diaphragm
CPT/HCPCS: 36415; 36416; 70450; 71010; 72170; 80048; 80053; 80076; 80162; 81001; 82140; 82550; 82607; 82746; 82805; 83735; 83880; 84100; 84145; 85014; 85018; 85025; 85610; 85730; 87015; 87040; 87045; 87046; 87086; 87324; 87449; 87899; 93005; 93010; 93306; 93798; 94640; 94760; A4216; C9113; G8978-GP-CK; G8979-GP-CI; G8987-GO-CK; G8988-GO-CJ; G8996-GN-CJ; G8996-GN-CK; G8997-GN-CJ; G8997-GN-CK; J1450; J1815; J1940; J2185; J7050; J7620; P9047